=== PATIENT | male | born 1985 | race American Indian/Alaskan Native ===

== ENCOUNTER 2017-02-23 09:31 | Emergency (ER) | payer SELFPAY ==
[2017-02-23 10:05] VITALS: BP 131/89
--- NOTE | 2017-02-23 10:09 | Emergency Department Report ---
Chief Complaint: Skin/Abscess/Foreign Body Stated Complaint: KNOT ON LEFT SIDE OF NECK Time Seen by Provider: 02/23/17 10:05 - HPI History of Present Illness: pt states he woke up with a tender knot on his left neck - ROS Review of Systems: - toothache - sore throat - ear pain - Exam Vital Signs: Vital Signs 02/23/17 10:03 Temperature 98.5 F Pulse Rate 84 Respiratory 16 Rate Blood Pressure 131/89 O2 Sat by Pulse 98 Oximetry Physical Exam: + L tonsilar/ ant cervical adenopathy MSE screening note: Focused history and physical exam performed. Due to findings the following was ordered: labs ED Disposition for MSE Condition: Stable
[2017-02-23 10:26] LABS: Basophils % (Auto) 0.3 % (0.0-1.8); Eosinophils % (Auto) 1.4 % (0.0-4.3); Hematocrit 38.8 % (35.5-45.6); Hemoglobin 13.1 gm/dl (11.8-15.2); Mean Corpuscular HGB Conc 34 % (32-34); Mean Corpuscular Hemoglobin 30 pg (28-32); Mean Corpuscular Volume 90 fl (84-94); Platelet Count 165 K/mm3 (140-440); Red Blood Count 4.33 M/mm3 (3.65-5.03); Red Cell Distribution Width 14.4 % (13.2-15.2); White Blood Count 3.7 K/mm3 (4.5-11.0)
[2017-02-23 10:45] LABS: Anion Gap 18 mmol/L; Blood Urea Nitrogen 12 mg/dL (9-20); Calcium 8.7 mg/dL (8.4-10.2); Carbon Dioxide 24 mmol/L (22-30); Chloride 103.5 mmol/L (98-107); Glucose 97 mg/dL (75-100); Potassium 4.1 mmol/L (3.6-5.0); Sodium 141 mmol/L (137-145)
--- NOTE | 2017-02-23 12:39 | Emergency Department Report ---
HPI - General Chief Complaint: Skin/Abscess/Foreign Body Time Seen by Provider: 02/23/17 10:05 - HPI HPI: Patient reports that he feels a knot and has numbness to the left side of his face behind and below his ear. He said he noticed that this morning. He said the pain is. 10 and it feels sore worse with touching. No swaw-byk-ohpgbrk medication taken. He denies any cough, fever, sore throat, nausea vomiting in, abdominal pain. Denies any urinary burning frequency or urgency. He reports some nasal congestion. Patient with history of hypertension and gastritis. ED Past Medical Hx - Past Medical History Previous Medical History?: Yes Hx Hypertension: Yes Additional medical history: gastritis. gallbladder disease(needs surgery) no stones - Surgical History Past Surgical History?: No - Family History Family history: hypertension - Social History Smoking Status: Current Every Day Smoker Substance Use Type: None - Medications Home Medications: Home Medications Medication Instructions Recorded Confirmed Last Taken Type Acetaminophen [Acetaminophen TAB] 500 mg PO Q8H PRN #12 tablet 02/23/17 Unknown Rx Amoxicillin [Amoxicillin TAB] 875 mg PO BID #14 tablet 02/23/17 Unknown Rx Cetirizine HCl [ZyrTEC] 10 mg PO QDAY #14 capsule 02/23/17 Unknown Rx Fluticasone [Flonase] 1 spray NS QDAY #1 bottle 02/23/17 Unknown Rx ED Review of Systems ROS: Stated complaint: KNOT ON LEFT SIDE OF NECK Other details as noted in HPI Comment: All other systems reviewed and negative Constitutional: denies: chills, fever Eyes: denies: eye pain, eye discharge ENT: denies: ear pain, throat pain, dental pain, hearing loss, epistaxis, congestion Respiratory: no symptoms reported Cardiovascular: denies: chest pain, palpitations, dyspnea on exertion Gastrointestinal: denies: abdominal pain, nausea, vomiting, diarrhea, constipation Genitourinary: denies: urgency, dysuria, frequency, hematuria, discharge, testicular pain, testicular mass Musculoskeletal: denies: back pain, joint swelling, arthralgia, myalgia Skin: denies: rash, lesions Neurological: numbness (facial area that has resolved). denies: headache, weakness, paresthesias, confusion, abnormal gait Hematological/Lymphatic: swollen glands. denies: easy bleeding, easy bruising Physical Exam - Physical Exam Vital Signs: Vital Signs 02/23/17 10:03 Temperature 98.5 F Pulse Rate 84 Respiratory 16 Rate Blood Pressure 131/89 O2 Sat by Pulse 98 Oximetry General: This is a 31-year-old male well-nourished well-developed in no acute distress Physical Exam: Head: Normocephalic, atraumatic, no abrasion, no bruising and no contusion. Eyes: Biateral pupils equal and reactive to light, bilateral EOM intact.. Bilateral conjunctival and sclera without injection, normal accommodation. Nose: NTTP. Mucosa pale and boggy. No maxillary or frontal sinus tenderness. Ears: Bilateral EAC without any redness drainage or swelling, Bi lateral TM congested without ertythema. No auricular abnormality. Vivek. Tragus NTTP. Normal inspection Mouth: No pharyngeal exudate or erythema. Uvula is midline and oral airways patent. Moist and tongue is normal Neck: Supple, Poserior cervical adenopathy, full range of motion and no C-spine tenderness. No swelling or tracheal deviation Cardiovascular: S1, S2. Regular rate and rhythm. No murmur. Capillary refill is less then 3 seconds. Lungs: Clear to auscultate bilaterally. No rhonchi, wheezes or rales. No chest wall tenderness MSK: Strength 5/5 in all extremities. No joint deformity or crepitus. Normal inspection. Full range of motion to all extremities Extremities: No clubbing, cyanosis or edema. +2 pulses. No neurovascular compromise Neurological: GCS is 15, alert and oriented 3, normal gait, negative pronator drift, negative Romberg. No sensory or motor deficit. Speech is clear and fluid and no facial droop . Normal reflexes Back: Full range of motion, normal inspection, no paraspinal or vertebral tenderness. negative SLR bilaterally and no saddle anesthesia Skin: Clean, dry and intact. No rash or lesions. Psych: Normal mood and behavior. ED Course Vital Signs 02/23/17 10:03 Temperature 98.5 F Pulse Rate 84 Respiratory 16 Rate Blood Pressure 131/89 O2 Sat by Pulse 98 Oximetry - Reevaluation(s) Reevaluation #1: 02/23/17 12:58 had uneventful ED stay ED Medical Decision Making - Lab Data Result diagrams: 02/23/17 10:13 02/23/17 10:13 Lab Results 02/23/17 02/23/17 Range/Units 10:13 10:13 WBC 3.7 L (4.5-11.0) K/mm3 RBC 4.33 (3.65-5.03) M/mm3 Hgb 13.1 (11.8-15.2) gm/dl Hct 38.8 (35.5-45.6) % MCV 90 (84-94) fl MCH 30 (28-32) pg MCHC 34 (32-34) % RDW 14.4 (13.2-15.2) % Plt Count 165 (140-440) K/mm3 Lymph % (Auto) 47.4 H (13.4-35.0) % Kenton % (Auto) 6.9 (0.0-7.3) % Eos % (Auto) 1.4 (0.0-4.3) % Baso % (Auto) 0.3 (0.0-1.8) % Lymph # 1.7 (1.2-5.4) K/mm3 Kenton # 0.3 (0.0-0.8) K/mm3 Eos # 0.1 (0.0-0.4) K/mm3 Baso # 0.0 (0.0-0.1) K/mm3 Seg Neutrophils % 44.0 (40.0-70.0) % Seg Neutrophils # 1.6 L (1.8-7.7) K/mm3 Sodium 141 (137-145) mmol/L Potassium 4.1 (3.6-5.0) mmol/L Chloride 103.5 (98-107) mmol/L Carbon Dioxide 24 (22-30) mmol/L Anion Gap 18 mmol/L BUN 12 (9-20) mg/dL Creatinine 1.0 (0.8-1.5) mg/dL Estimated GFR > 60 ml/min BUN/Creatinine Ratio 12.00 % Glucose 97 (75-100) mg/dL Calcium 8.7 (8.4-10.2) mg/dL - Medical Decision Making ED course: Pthere complaining and off left neck swelling with physical findings for left so by cold adenitis posteriorly. His CBC reflects low white count of 3.7 elevated lymph and decrease neutrophils otherwise normal. BMP was stable. I explained to patient based on my physical findings he has allergic rhinitis and that it is not uncommon to have unilateral isolated lymph nodes swelling and inflammation. Patient reports that he has high blood pressure and I told them that this could be a viral infection. I also encouraged him to have HIV testing done at [facility] which is free on Tuesdays and because he said he has never had one. I encouraged him that he is not having symptoms of acute viral infection such as cough, sore throat, night sweats and weight loss. Patient will be treated with antibiotics and Tylenol because he said he cannot take Motrin. He voices understanding to discharge instruction and treatment plan. Diagnostic/labs: CBC with decreased white blood cell, increase lymph and decrease neutrophil which suggests viral infection. BMP is stable. Patient encouraged to have STD testing which he has not had. Assessment/plan 1: Rhinitis: Possible viral in nature 2. Leukopenia-mild low white count of 3.7 3. Isolated posterior cervical lympadenitis Prescription sent for Zyrtec and Flonase to cover rhinitis Prescription sent for amoxicillin and Tylenol for adenitis Patient encouraged to follow-up at [facility] Tuesdays and /or for STD test Follow-up with primary care physician as needed Critical care attestation.: If time is entered above; I have spent that time in minutes in the direct care of this critically ill patient, excluding procedure time. ED Disposition Clinical Impression: Cervical adenitis Leukocytopenia, unspecified Qualifiers: Leukopenia type: unspecified Qualified Code(s): D72.819 - Decreased white blood cell count, unspecified Rhinitis Qualifiers: Rhinitis type: other Chronicity: acute Qualified Code(s): J00 - Acute nasopharyngitis [common cold] Disposition: TO HOME OR SELFCARE Is pt being admited?: No Does the pt Need Aspirin: No Condition: Stable Instructions: Cold Symptoms (ED), Allergic Rhinitis (ED), Adenitis (ED) Additional Instructions: Take antibiotic as prescribed Increase fluid intake Follow up at health Department as discussed Prescriptions: Acetaminophen [Acetaminophen TAB] 500 mg PO Q8H PRN #12 tablet PRN Reason: Pain Amoxicillin [Amoxicillin TAB] 875 mg PO BID #14 tablet Cetirizine HCl [ZyrTEC] 10 mg PO QDAY #14 capsule Fluticasone [Flonase] 1 spray NS QDAY #1 bottle Referrals: PRIMARY CARE, [Primary Care Provider] - 3-5 Days Forms: Work/School Release Form(ED)
== END 2017-02-23 13:20 | disposition home or self-care (01) ==
LOC: ED 09:31
DX: I88.9 Nonspecific lymphadenitis, unspecified (principal); D72.819 Decreased white blood cell count, unspecified; J31.0 Chronic rhinitis; I10 Essential (primary) hypertension; F17.210 Nicotine dependence, cigarettes, uncomplicated
CPT/HCPCS: 36415; 80048; 85025; 99283

== ENCOUNTER 2018-03-17 19:52 | Emergency (ER) | payer SELFPAY | END 2018-03-17 20:15 | disposition left against medical advice (07) | LOC: ED 19:52 | DX: M79.602 Pain in left arm (principal); Z53.21 Procedure and treatment not carried out due to patient leaving prior to being seen by health care provider ==

== ENCOUNTER 2018-04-01 10:49 | Day surgery (SDC) | payer BC ==
[2018-04-01] MEDS ORDERED: ANCEF/STERILE WATER 2 GM/20 ML IV NR (12:42)
[2018-04-01] MEDS ORDERED: DIPRIVAN 10 MG/ML IV ONE (12:44)
--- NOTE | 2018-04-01 12:57 | Anesthesia Day of Surgery ---
Anesthesia Day of Surgery - Day of Surgery Patient H&P Reviewed: Yes Patient is NPO: Yes Beta Blockers: No Cardiac Clearance: No Pulmonary Clearance: No
--- NOTE | 2018-04-01 12:57 | Anesthesia Consultation ---
Anesthesia Consult and Med Hx Date of service: 04/01/18 - Airway Anesthetic Teeth Evaluation: Good ROM Head & Neck: Adequate Mental/Hyoid Distance: Adequate Mallampati Class: Class II Intubation Access Assessment: Probably Good - Pulmonary Exam CTA: Yes - Cardiac Exam Cardiac Exam: RRR - Pre-Operative Health Status ASA Pre-Surgery Classification: ASA2 Proposed Anesthetic Plan: General - Pulmonary Hx Smoking: Yes (1/4 PPD X 10 YRS) Hx Asthma: Yes ( CHILD ONLY) Hx Sleep Apnea: No (BERNICE PRE SCREEN LOW RISK) - Cardiovascular System Hx Hypertension: No - Other Systems Hx Alcohol Use: Yes (BEER QD) Hx Cancer: No
[2018-04-01] MEDS ORDERED: LACTATED RINGERS 1,000 ML IV SCH ×2 (13:00)
[2018-04-01] MEDS ORDERED: MARCAINE 0.5% INFILTRATI ONE ×3 (13:19→13:55)
[2018-04-01] MEDS ORDERED: XYLOCAINE MPF 2% ONE (13:21)
[2018-04-01] MEDS ORDERED: LOPRESSOR IV ONE (13:21)
[2018-04-01] MEDS ORDERED: DILAUDID ONE (13:21)
[2018-04-01] MEDS ORDERED: DECADRON ONE (14:04)
[2018-04-01] MEDS ORDERED: ZOFRAN ONE (14:04)
--- NOTE | 2018-04-01 14:16 | Procedure Note ---
Date of procedure: 04/01/18 Pre-op diagnosis: Unstable dislocation left carpometacarpal joint thumb Post-op diagnosis: same Procedure: Closed reduction percutaneous K wire fixation left carpometacarpal joint thumb Procedure The patient was brought to the OR on the recovery room bed he was then placed supine on the OR table Patient was induced with general anesthesia. The left upper extremity was then prepped and draped in the usual sterile manner. A timeout procedure was done to identify the patient and the correct operative site. Under C-arm visualization the left thumb was visualized the patient was noted to have a unstable dislocation with dislocation with slight pressure on the metacarpal necks 26.2 K wires were inserted along the proximal portion of the metacarpal and through to the trapezium AP and lateral views were obtained showing good reduction at the CMC joint and placement of the K wires following this the K wires were bent at a 90 angle and cut protruding above the skin Routine. Dressings were applied as well as a well-padded thumb spica splint. The patient tolerated the procedure. No complications he was sent to postanesthesia recovery in a stable condition Anesthesia: MAC Surgeon: EDUAR MUNOZ Estimated blood loss: minimal Pathology: none Condition: stable Disposition: PACU
[2018-04-01] MEDS: DILAUDID IV PRN ×3 (14:18→14:50)
[2018-04-01] MEDS ORDERED: NORCO 5/325 ONE (14:25)
[2018-04-01] MEDS ORDERED: DILAUDID IV PRN (15:35)
[2018-04-01] MEDS ORDERED: DEMEROL IV PRN (15:35)
[2018-04-01] MEDS ORDERED: DEMEROL ONE (15:42)
[2018-04-01] MEDS ORDERED: NORCO 5/325 PO PRN (16:37)
[2018-04-01 17:24] VITALS: BP 150/92
--- NOTE | 2018-04-01 23:49 | XRay Report ---
FINAL REPORT EXAM: XR FINGER(S) 2+V LT HISTORY: LT THUMB DISLOCATION/LT THUMB PINNING TECHNIQUE: Two, fluoroscopic images of the left thumb were obtained. PRIORS: None. FINDINGS: Levi wires are noted traversing the 1st carpometacarpal articulation. No displaced fracture identified. Evaluation limited secondary to oblique, low dose projection. IMPRESSION: Percutaneous pinning of the left 1st carpometacarpal articulation, no findings to suggest complication.
== END 2018-04-01 17:25 | disposition home or self-care (01) ==
LOC: OR 10:49
PROVIDERS: ATTEND Orthopaedic Surgery
DX: S63.045A Dislocation of carpometacarpal joint of left thumb, initial encounter (principal); J45.909 Unspecified asthma, uncomplicated; F17.210 Nicotine dependence, cigarettes, uncomplicated; Z79.899 Other long term (current) drug therapy; Z88.1 Allergy status to other antibiotic agents; Z88.2 Allergy status to sulfonamides; Z72.89 Other problems related to lifestyle; Z98.890 Other specified postprocedural states; X58.XXXA Exposure to other specified factors, initial encounter; Y93.89 Activity, other specified; Y92.89 Other specified places as the place of occurrence of the external cause; Y99.8 Other external cause status
CPT/HCPCS: 26650; 73140; J0690; J1100; J1170; J2175; J2405; J2704; J7120

== ENCOUNTER 2019-03-30 15:32 | Emergency (ER) | payer BC ==
[2019-03-30 15:45] VITALS: BP 175/108
--- NOTE | 2019-03-30 15:54 | Event Note ---
ED Screening Note Date of service: 03/30/19 Time: 15:44 ED Screening Note: 33 y o male presents with left upper abd pain with nauea x 2 days This initial assessment/diagnostic orders/clinical plan/treatment(s) is/are subject to change based on patients health status, clinical progression and re- assessment by fellow clinical providers in the ED. Further treatment and workup at subsequent clinical providers discretion. Patient/guardian urged not to elope from the ED as their condition may be serious if not clinically assessed and managed. Initial orders include: ua labs ACC eval
[2019-03-30 17:16] LABS: Basophils % (Auto) 0.6 % (0.0-1.8); Eosinophils % (Auto) 0.4 % (0.0-4.3); Hematocrit 41.7 % (35.5-45.6); Hemoglobin 13.9 gm/dl (11.8-15.2); Mean Corpuscular HGB Conc 33 % (32-34); Mean Corpuscular Volume 98 fl (84-94); Monocytes # (Auto) 0.2 K/mm3 (0.0-0.8); Monocytes % (Auto) 5.7 % (0.0-7.3); Platelet Count 172 K/mm3 (140-440); Red Blood Count 4.25 M/mm3 (3.65-5.03); Red Cell Distribution Width 14.2 % (13.2-15.2)
[2019-03-30 17:33] LABS: BUN/Creatinine Ratio 10; Blood Urea Nitrogen 10 mg/dL (9-20); Hemolysis Index 5
[2019-03-30] MEDS ORDERED: ONDANSETRON 4 MG/2 ML INJ IV ONE (17:37)
[2019-03-30] MEDS ORDERED: SODIUM CHLORIDE 0.9% 1000 ML 1,000 ML IV ONE (17:37)
[2019-03-30] MEDS ORDERED: MORPHINE 4 MG/1 ML INJ IV ONE (17:37)
[2019-03-30] MEDS ORDERED: POTASSIUM CHLORIDE ER 20 MEQ TAB PO ONE (18:02)
[2019-03-30] MEDS ORDERED: HYDROcodone/ACETAMINOPHEN 10-325MG TAB PO ONE (18:28)
[2019-03-30] MEDS ORDERED: DICYCLOMINE 10 MG/5 ML ORAL LIQD PO ONE (18:28)
--- NOTE | 2019-03-30 19:26 | Emergency Department Report ---
ED Abdominal Pain HPI - General Chief Complaint: Chest Pain Stated Complaint: LT SIDE CHEST PAIN/SOB Time Seen by Provider: 03/30/19 15:43 Source: patient Mode of arrival: Ambulatory Limitations: No Limitations - History of Present Illness Initial Comments: This is a 33-year-old male nontoxic, well nourished in appearance, no acute signs of distress presents to the ED with c/o of nausea and vomiting and left upper abdominal pain 1 day. Patient describes vomiting as food content and yellow gastric acid. Patient describes abdominal pain as cramping and aching with level of 3/10 with radiation to left sided chest area. Patient denies any upper respiratory symptoms. Patient denies any shortness of breath, hemoptysis, fever, chills, nausea, vomiting, headache, stiff neck, numbness, tingling, abdominal pain. Patient denies pleuritic chest pain. Patient denies any recent travels or long car rides. Patient denies any recent surgeries or any sick contacts. He stated allergies to Bactrim and NSAIDs. Denies significant past medical history. MD Complaint: abdominal pain, other (chest pain, n/v) -: This morning Location: LUQ Radiation: chest Migration to: no migration Severity: mild Severity scale (0 -10): 3 Quality: cramping, aching Consistency: constant Improves With: nothing Worsens With: nothing Associated Symptoms: nausea, vomiting. denies: diarrhea, fever, chills, constipation, dysuria, hematemesis, hematochezia, melena, anorexia, syncope - Related Data Home Medications Medication Instructions Recorded Confirmed Last Taken HYDROcodone/ACETAMINOPHEN 1 each PO PRN PRN 03/31/18 04/01/18 03/31/18 [Hydrocodone-Acetamin 5-325 mg] Previous Rx's Medication Instructions Recorded Last Taken Type HYDROcodone/APAP 5-325 [Warren 1 each PO Q4HR PRN #20 tablet 04/01/18 Unknown Rx 5-325 mg TAB] Acetaminophen/Codeine [Tylenol 1 tab PO Q6H PRN #12 tab 03/30/19 Unknown Rx /Codeine # 3 tab] Ondansetron [Zofran Odt] 4 mg PO Q8HR PRN #20 tab.rapdis 03/30/19 Unknown Rx Allergies Allergy/AdvReac Type Severity Reaction Status Date / Time NSAIDS (Non-Steroidal Allergy Nausea Verified 07/23/13 10:05 Anti-Inflamma sulfamethoxazole Allergy Hives Verified 07/23/13 10:05 [From Bactrim] trimethoprim [From Bactrim] Allergy Hives Verified 07/23/13 10:05 ED Review of Systems ROS: Stated complaint: LT SIDE CHEST PAIN/SOB Other details as noted in HPI Constitutional: denies: chills, fever Eyes: denies: eye pain, eye discharge, vision change ENT: denies: ear pain, throat pain Respiratory: denies: cough, shortness of breath, wheezing Cardiovascular: chest pain. denies: palpitations Endocrine: no symptoms reported Gastrointestinal: abdominal pain, nausea, vomiting. denies: diarrhea Genitourinary: denies: urgency, dysuria Musculoskeletal: denies: back pain, joint swelling, arthralgia Skin: denies: rash, lesions Neurological: denies: headache, weakness, paresthesias Psychiatric: denies: anxiety, depression Hematological/Lymphatic: denies: easy bleeding, easy bruising ED Past Medical Hx - Past Medical History Hx Hypertension: No Hx Asthma: Yes ( CHILD ONLY) Hx HIV: No Additional medical history: gastritis. gallbladder disease(needs surgery) no stones - Surgical History Past Surgical History?: Yes Additional Surgical History: LT THUMB - Social History Smoking Status: Current Every Day Smoker Substance Use Type: Alcohol - Medications Home Medications: Home Medications Medication Instructions Recorded Confirmed Last Taken Type HYDROcodone/ACETAMINOPHEN 1 each PO PRN PRN 03/31/18 04/01/18 03/31/18 History [Hydrocodone-Acetamin 5-325 mg] HYDROcodone/APAP 5-325 [Warren 1 each PO Q4HR PRN #20 tablet 04/01/18 Unknown Rx 5-325 mg TAB] Acetaminophen/Codeine [Tylenol 1 tab PO Q6H PRN #12 tab 03/30/19 Unknown Rx /Codeine # 3 tab] Ondansetron [Zofran Odt] 4 mg PO Q8HR PRN #20 tab.rapdis 03/30/19 Unknown Rx ED Physical Exam - General Limitations: No Limitations General appearance: alert, in no apparent distress - Head Head exam: Present: atraumatic, normocephalic - Neck Neck exam: Present: normal inspection, full ROM. Absent: tenderness, meningismus, lymphadenopathy - Respiratory Respiratory exam: Present: normal lung sounds bilaterally. Absent: respiratory distress, wheezes, rales, rhonchi, stridor, chest wall tenderness, accessory muscle use, decreased breath sounds, prolonged expiratory - Cardiovascular Cardiovascular Exam: Present: regular rate, normal rhythm, normal heart sounds. Absent: irregular rhythm, systolic murmur, diastolic murmur, rubs, gallop - GI/Abdominal GI/Abdominal exam: Present: soft, tenderness (LUQ), normal bowel sounds. Absent: distended, guarding, rebound, rigid, diminished bowel sounds - Extremities Exam Extremities exam: Present: normal inspection, full ROM, normal capillary refill. Absent: tenderness - Back Exam Back exam: Present: normal inspection, full ROM. Absent: tenderness, CVA tenderness (R), CVA tenderness (L), muscle spasm, paraspinal tenderness, vertebral tenderness, rash noted - Neurological Exam Neurological exam: Present: alert, oriented X3, normal gait - Psychiatric Psychiatric exam: Present: normal affect, normal mood - Skin Skin exam: Present: warm, dry, intact, normal color. Absent: rash ED Course Vital Signs 03/30/19 03/30/19 03/30/19 15:43 18:37 18:40 Temperature 98.0 F Pulse Rate 99 H Respiratory 16 16 17 Rate Blood Pressure 175/108 O2 Sat by Pulse 99 Oximetry 03/30/19 03/30/19 19:10 19:17 Temperature Pulse Rate Respiratory 18 18 Rate Blood Pressure O2 Sat by Pulse Oximetry - Reevaluation(s) Reevaluation #1: 03/30/19 19:31 Patient is speaking in full sentences with no signs of distress noted. ED Medical Decision Making - Lab Data Result diagrams: 03/30/19 16:38 03/30/19 16:38 - Medical Decision Making This is a 33-year-old male that presents with chest pain and abdominal pain with n/v. Patient is stable and was examined by me. IVONE and HEART score 0 pints. Wells criteria for DVT/SVT/PE 0 points. Negative signs of symptoms of appendicitis. EKG normal sinus rhythm with no significant changes in ST. Chest xray dictated by the radiologist. CT IV and PO contrast of abdomen obtained and dictated by the radiologist. PAtient is notified of the Xray/CT report with no questions noted. Labs within normal limits. Negative troponin. Patient received Warren in the ED which she stated his symptoms are improving subsided. A by mouth challenge has been obtained and patient tolerated well with no nausea vomiting. Patient was instructed to Follow-up with a primary care/palliative nurse doctor in 3-5 days or if symptoms worsen and continue return to emergency room as soon as possible. At time of discharge, the patient does not seem toxic or i ll in appearance. No acute signs of distress noted. Patient agrees to discharge treatment plan of care. No further questions noted by the patient. Critical care attestation.: If time is entered above; I have spent that time in minutes in the direct care of this critically ill patient, excluding procedure time. ED Disposition Clinical Impression: Atypical chest pain Abdominal pain Qualifiers: Abdominal location: left upper quadrant Qualified Code(s): R10.12 - Left upper quadrant pain Nausea & vomiting Qualifiers: Vomiting type: unspecified Vomiting Intractability: non-intractable Qualified Code(s): R11.2 - Nausea with vomiting, unspecified Disposition: - TO HOME OR SELFCARE Is pt being admited?: No Does the pt Need Aspirin: No Condition: Stable Instructions: Chest Pain (ED), Acute Abdominal Pain (ED), Acute Nausea and Vomiting (ED), Acetaminophen/Codeine (By mouth) Additional Instructions: Follow-up with a primary care and palliative nurse doctor in 3-5 days or if symptoms worsen and continue return to emergency room as soon as possible. Do not operate any machinery while taking Tylenol with codeine as this may cause drowsiness. Prescriptions: Acetaminophen/Codeine [Tylenol /Codeine # 3 tab] 1 tab PO Q6H PRN #12 tab PRN Reason: Pain , Severe (7-10) Ondansetron [Zofran Odt] 4 mg PO Q8HR PRN #20 tab.rapdis PRN Reason: Nausea Referrals: PRIMARY CARE, [Primary Care Provider] - 3-5 Days NATHANAEL MENDOZA MD [Staff Physician] - 3-5 Days [facility] [Outside] - 3-5 Days [facility] [Outside] - 3-5 Days BRANDT BOWEN MD [Staff Physician] - 3-5 Days Forms: Work/School Release Form(ED)
--- NOTE | 2019-03-30 19:29 | XRay Report ---
Abdominal series with frontal chest 5 views INDICATION: Abdominal pain. Chest pain IMPRESSION: The lungs are clear. Heart size normal. Several dilated loops of small bowel noted within the left upper quadrant although no focal transition is identified. This could be seen with developi ng enteritis or low-grade small bowel obstruction. Moderate seen throughout much the colon. Signer Name: Charbel Guzman MD Signed: 03/30/2019 7:24 PM Workstation Name: [id number]
[2019-03-30 19:52] LABS: Bacteria,Urine 1+ /HPF (Negative); Bilirubin,Urine NEG (Negative); Blood,Urine NEG (Negative); Color,Urine Yellow (Yellow); Hyaline Casts,Urine 2 /LPF; Mucus,Urine 3+ /HPF; Urobilinogen,Urine < 2.0 mg/dL (<2.0)
--- NOTE | 2019-03-30 21:33 | Cat Scan Report ---
CT ABDOMEN AND PELVIS WITH CONTRAST INDICATION: abd pain/n/v. TECHNIQUE: Axial CT images were obtained through the abdomen and pelvis after 100 cc Omnipaque [address] scans at this location are performed using CT dose reduction for ALARA by means of automated exposure control. COMPARISON: None available. FINDINGS: LOWER CHEST: No significant abnormality. LIVER: No significant abnormality. GALLBLADDER: No significant abnormality. BILE DUCTS: No significant abnormality. PANCREAS: No significant abnormality. SPLEEN: No significant abnormality. ADRENALS: No significant abnormality. RIGHT KIDNEY and URETER: No significant abnormality. LEFT KIDNEY and URETER: No significant abnormality. STOMACH and SMALL BOWEL: No significant abnormality. COLON: No significant abnormality. APPENDIX: Normal PERITONEUM: No free fluid. No free air. No fluid collection. LYMPH NODES: No significant adenopathy. AORTA and ARTERIES: No significant abnormality. IVC and VEINS: No significant abnormality. URINARY BLADDER: No significant abnormality. REPRODUCTIVE ORGANS: No significant abnormality. ADDITIONAL FINDINGS: None. SKELETAL SYSTEM: No significant abnormality. IMPRESSION: 1. No significant abnormality. Signer Name: Shimon Trivedi MD Signed: 03/30/2019 9:28 PM Workstation Name: [id number]
== END 2019-03-30 22:08 | disposition home or self-care (01) ==
LOC: ED 15:32
DX: R07.89 Other chest pain (principal); R10.12 Left upper quadrant pain; R11.2 Nausea with vomiting, unspecified; J45.909 Unspecified asthma, uncomplicated; F17.200 Nicotine dependence, unspecified, uncomplicated; Z87.19 Personal history of other diseases of the digestive system; Z98.890 Other specified postprocedural states; Z79.899 Other long term (current) drug therapy; Z88.6 Allergy status to analgesic agent
CPT/HCPCS: 36415; 74022; 74177; 80048; 81001; 82150; 83690; 84484; 85025; 93005; 93010; 96361; 96374; 96375; 99284; J2270; J2405; J7030; Q9967

== ENCOUNTER 2019-04-24 07:38 | Emergency (ER) | payer BC ==
[2019-04-24] MEDS ORDERED: NACL 0.9% 1000 ML 1,000 ML IV ONE (08:20)
--- NOTE | 2019-04-24 08:30 | Emergency Department Report ---
ED General Adult HPI - General Chief complaint: GI Bleed Stated complaint: N/V/DISORIENTED/ABD PAIN Time Seen by Provider: 04/24/19 08:09 Source: patient Mode of arrival: Ambulatory Limitations: No Limitations - History of Present Illness Initial comments: 33-year-old -[place] male presents to the emergency room for complaint of nausea vomiting last night and abdominal discomfort with blood in stool last night. Patient admits to continuing nausea. Patient reports blood in stool was mixed with stool and on toilet paper. Patient also complains of a boil on his buttock has been here for a while. Patient reports that it is painful. Patient does elicit that he was drinking a couple of beers last night and that he drinks every day. Patient denies any past medical history currently takes no medications on a daily basis surgical history left thumb surgery with Dr. Goncalves in 2018. Patient does have a primary care provider is Dr. Rubio. -: Last night Location: abdomen, genitals Radiation: non-radiation Quality: aching, constant Improves with: none Worsens with: none Associated Symptoms: nausea/vomiting Treatments Prior to Arrival: none - Related Data Home Medications Medication Instructions Recorded Confirmed Last Taken HYDROcodone/ACETAMINOPHEN 1 each PO PRN PRN 03/31/18 04/01/18 03/31/18 [Hydrocodone-Acetamin 5-325 mg] Previous Rx's Medication Instructions Recorded Last Taken Type HYDROcodone/APAP 5-325 [[place] 1 each PO Q4HR PRN #20 tablet 04/01/18 Unknown Rx 5-325 mg TAB] Acetaminophen/Codeine [Tylenol 1 tab PO Q6H PRN #12 tab 04/24/19 Unknown Rx /Codeine # 3 tab] DOXYCYCLINE Hyclate [Vibramycin 100 mg PO Q12HR #20 capsule 04/24/19 Unknown Rx CAP] Famotidine [Pepcid] 20 mg PO BID #20 tablet 04/24/19 Unknown Rx Ondansetron [Zofran ODT TAB] 4 mg PO Q8HR PRN #20 tab.rapdis 04/24/19 Unknown Rx Allergies Allergy/AdvReac Type Severity Reaction Status Date / Time NSAIDS (Non-Steroidal Allergy Nausea Verified 07/23/13 10:05 Anti-Inflamma sulfamethoxazole Allergy Hives Verified 07/23/13 10:05 [From Bactrim] trimethoprim [From Bactrim] Allergy Hives Verified 07/23/13 10:05 ED Review of Systems ROS: Stated complaint: N/V/DISORIENTED/ABD PAIN Other details as noted in HPI Comment: All other systems reviewed and negative ED Past Medical Hx - Past Medical History Hx Hypertension: No Hx Asthma: Yes ( CHILD ONLY) Hx HIV: No Additional medical history: gastritis. gallbladder disease(needs surgery) no stones - Surgical History Additional Surgical History: LT THUMB - Social History Smoking Status: Current Every Day Smoker Substance Use Type: Alcohol - Medications Home Medications: Home Medications Medication Instructions Recorded Confirmed Last Taken Type HYDROcodone/ACETAMINOPHEN 1 each PO PRN PRN 03/31/18 04/01/18 03/31/18 History [Hydrocodone-Acetamin 5-325 mg] HYDROcodone/APAP 5-325 [[place] 1 each PO Q4HR PRN #20 tablet 04/01/18 Unknown Rx 5-325 mg TAB] Acetaminophen/Codeine [Tylenol 1 tab PO Q6H PRN #12 tab 04/24/19 Unknown Rx /Codeine # 3 tab] DOXYCYCLINE Hyclate [Vibramycin 100 mg PO Q12HR #20 capsule 04/24/19 Unknown Rx CAP] Famotidine [Pepcid] 20 mg PO BID #20 tablet 04/24/19 Unknown Rx Ondansetron [Zofran ODT TAB] 4 mg PO Q8HR PRN #20 tab.rapdis 04/24/19 Unknown Rx ED Physical Exam - General Limitations: No Limitations General appearance: alert, in no apparent distress, other (smells of alcohol) - Head Head exam: Present: atraumatic, normocephalic - Eye Eye exam: Present: normal appearance - ENT ENT exam: Present: mucous membranes moist - Neck Neck exam: Present: normal inspection, full ROM - Respiratory Respiratory exam: Present: normal lung sounds bilaterally. Absent: respiratory distress - Cardiovascular Cardiovascular Exam: Present: regular rate, normal rhythm. Absent: systolic murmur, diastolic murmur, rubs, gallop - GI/Abdominal GI/Abdominal exam: Present: soft, normal bowel sounds. Absent: distended, tenderness, guarding, rebound - Rectal Rectal exam: Present: normal rectal tone, heme (+) stool, tenderness (to the perineum without induration minimal fluctuation) - Back Exam Back exam: Present: normal inspection, full ROM - Neurological Exam Neurological exam: Present: alert, oriented X3 - Psychiatric Psychiatric exam: Present: normal affect, normal mood - Skin Skin exam: Present: warm, dry, intact, normal color. Absent: rash ED Course Vital Signs 04/24/19 07:40 Temperature 98 F Pulse Rate 96 H Respiratory 18 Rate Blood Pressure 166/112 O2 Sat by Pulse 94 Oximetry ED Medical Decision Making - Lab Data Result diagrams: 04/24/19 08:20 04/24/19 08:20 - Medical Decision Making 33-year-old -[place] male presents to the emergency room for complaint of nausea vomiting last night and abdominal discomfort with blood in stool last night. Patient admits to continuing nausea. Patient reports blood in stool was mixed with stool and on toilet paper. Patient also complains of a boil on his buttock has been here for a while. Patient reports that it is painful. Patient does elicit that he was drinking a couple of beers last night and that he drinks every day. Patient denies any past medical history currently takes no medications on a daily basis surgical history left thumb surgery with Dr. Goncalves in 2018. Patient does have a primary care provider is Dr. Rubio. Patient's orders were placed for CBC CMP lipase blood alcohol level ER occult guaiac, normal saline IV insertion. Critical care attestation.: If time is entered above; I have spent that time in minutes in the direct care of this critically ill patient, excluding procedure time. ED Disposition Clinical Impression: Abscess or cellulitis of perineum, Acute abdominal pain Disposition: -01 TO HOME OR SELFCARE Is pt being admited?: No Does the pt Need Aspirin: No Condition: Stable Instructions: Furunculosis and Carbunculosis (ED), Acute Abdominal Pain (ED), High Fiber Diet (ED), At-Risk Alcohol Use (ED) Additional Instructions: All labs are negative for any acute findings. Please completes your antibiotics as scribe. Take pain medication as needed. Refrain from drinking alcohol. Increase her diet with high fiber foods and vegetables and fruit. Please follow up with a lactic gastroenterology have listed their information below for your convenience. Prescriptions: Famotidine [Pepcid] 20 mg PO BID #20 tablet Acetaminophen/Codeine [Tylenol /Codeine # 3 tab] 1 tab PO Q6H PRN #12 tab PRN Reason: Pain , Severe (7-10) DOXYCYCLINE Hyclate [Vibramycin CAP] 100 mg PO Q12HR #20 capsule Ondansetron [Zofran ODT TAB] 4 mg PO Q8HR PRN #20 tab.rapdis PRN Reason: Nausea Referrals: PRIMARY CARE, [Primary Care Provider] - 3-5 Days [facility] [Provider Group] - 3-5 Days JUAN RUCKER MD [Staff Physician] - 3-5 Days Forms: Accompanied Note, Work/School Release Form(ED)
[2019-04-24] MEDS ORDERED: ZOFRAN IV ONE (08:36)
[2019-04-24 08:37] LABS: Basophils % (Auto) 0.6 % (0.0-1.8); Eosinophils % (Auto) 0.6 % (0.0-4.3); Hematocrit 39.9 % (35.5-45.6); Hemoglobin 13.6 gm/dl (11.8-15.2); Lymphocytes # (Auto) 0.7 K/mm3 (1.2-5.4); Lymphocytes % (Auto) 22.6 % (13.4-35.0); Mean Corpuscular HGB Conc 34 % (32-34); Mean Corpuscular Volume 99 fl (84-94); Monocytes # (Auto) 0.3 K/mm3 (0.0-0.8); Platelet Count 139 K/mm3 (140-440); Red Blood Count 4.06 M/mm3 (3.65-5.03)
[2019-04-24 08:58] LABS: Alanine Aminotransferase 33 units/L (7-56); Albumin 4.5 g/dL (3.9-5); BUN/Creatinine Ratio 9; Blood Urea Nitrogen 10 mg/dL (9-20); Calcium 8.8 mg/dL (8.4-10.2); Hemolysis Index 2
--- NOTE | 2019-04-24 09:00 | Event Note ---
Date of service: 04/24/19 Face to Face: This is a 33-year-old gentleman who is not known to this provider previously. The patient is seen at this hospital last month for abdominal pain. Pertinent findings are attached to this document. He presents with a complaint of abdominal pain, reported regular emesis with possible blood, and he also reported a brown stool with red blood. He is a tobacco smoker, and consumes alcohol on a fairly regular basis as per my report. He also experiences secondary exposure to marijuana. His abdomen is soft and benign, with no rebound, guarding or peritoneal signs. Reportedly, rectal exam shows brown stool that is guaiac positive. The patient is strongly encouraged to follow up with outpatient gastroenterology. He was also counseled to modify diet and lifestyle, and to avoid exposure to tobacco, marijuana, and alcohol. He endorse a secondary complaint of Perineum induration, he reports his been present for 2 months, it is not especially tender, and there is no fluctuance. Patient may start sitz baths, as needed, doubt acute infectious process, however, we will cover with Keflex. The patient does not appear to have an emergent condition at this time, and he is strongly encouraged to follow up as an outpatient. The patient is clinically sober at this time. During his perineum examination, I am dealer compliance representative and escorted by JACKIE Garnerfied Print Report Referring Physician: SHARMILA GAYLE Patient Name: SARABJIT FLORES Date of : 1985 Sex: Male Report Date: 2019-03-30 Report Status: [place] [address] Cat Scan Report Signed Patient: SARABJIT FLORES MR#: [id number] : 1985 Acct:[id number] Age/Sex: 33 / M ADM Date: 03/30/19 Loc: ED Attending Dr: Ordering Physician: SHARMILA GAYLE NP Date of Service: 03/30/19 Procedure(s): CT abdomen pelvis w con Accession Number(s): [id number] cc: SHARMILA GAYLE NP CT ABDOMEN AND PELVIS WITH CONTRAST INDICATION: abd pain/n/v. TECHNIQUE: Axial CT images were obtained through the abdomen and pelvis after 100 cc Omnipaque [address] scans at this location are performed using CT dose reduction for ALARA by means of automated exposure control. COMPARISON: None available. FINDINGS: LOWER CHEST: No significant abnormality. LIVER: No significant abnormality. GALLBLADDER: No significant abnormality. BILE DUCTS: No significant abnormality. PANCREAS: No significant abnormality. SPLEEN: No significant abnormality. ADRENALS: No significant abnormality. RIGHT KIDNEY and URETER: No significant abnormality. LEFT KIDNEY and URETER: No significant abnormality. STOMACH and SMALL BOWEL: No significant abnormality. COLON: No significant abnormality. APPENDIX: Normal PERITONEUM: No free fluid. No free air. No fluid collection. LYMPH NODES: No significant adenopathy. AORTA and ARTERIES: No significant abnormality. IVC and VEINS: No significant abnormality. URINARY BLADDER: No significant abnormality. REPRODUCTIVE ORGANS: No significant abnormality. ADDITIONAL FINDINGS: None. SKELETAL SYSTEM: No significant abnormality. IMPRESSION: 1. No significant abnormality. Signer Name: Shimon Trivedi MD Signed: 03/30/2019 9:28 PM Workstation Name: [id number] Transcribed By: Dictated By: Shimon Trivedi MD Electronically Authenticated By: Shimon Trivedi MD Signed Date/Time: 03/30/192127 DD/ 25 Vital Signs 04/24/19 07:40 Temperature 98 F Pulse Rate 96 H Respiratory 18 Rate Blood Pressure 166/112 O2 Sat by Pulse 94 Oximetry Lab Results 04/24/19 04/24/19 04/24/19 Range/Units 08:20 08:20 08:26 WBC 3.1 L (4.5-11.0) K/mm3 RBC 4.06 (3.65-5.03) M/mm3 Hgb 13.6 (11.8-15.2) gm/dl Hct 39.9 (35.5-45.6) % MCV 99 H (84-94) fl MCH 34 H (28-32) pg MCHC 34 (32-34) % RDW 15.0 (13.2-15.2) % Plt Count 139 L (140-440) K/mm3 Lymph % (Auto) 22.6 (13.4-35.0) % [place] % (Auto) 9.0 H (0.0-7.3) % Eos % (Auto) 0.6 (0.0-4.3) % Baso % (Auto) 0.6 (0.0-1.8) % Lymph # 0.7 L (1.2-5.4) K/mm3 [place] # 0.3 (0.0-0.8) K/mm3 Eos # 0.0 (0.0-0.4) K/mm3 Baso # 0.0 (0.0-0.1) K/mm3 Seg Neutrophils % 67.2 (40.0-70.0) % Seg Neutrophils # 2.1 (1.8-7.7) K/mm3 Sodium 143 (137-145) mmol/L Potassium 3.7 (3.6-5.0) mmol/L Chloride 102.8 (98-107) mmol/L Carbon Dioxide 22 (22-30) mmol/L Anion Gap 22 mmol/L BUN 10 (9-20) mg/dL Creatinine 1.1 (0.8-1.5) mg/dL Estimated GFR > 60 ml/min BUN/Creatinine Ratio 9 % Glucose 100 (75-100) mg/dL Calcium 8.8 (8.4-10.2) mg/dL Total Bilirubin 0.40 (0.1-1.2) mg/dL AST 46 H (5-40) units/L ALT 33 (7-56) units/L Alkaline Phosphatase 68 (35-129) units/L Total Protein 8.3 H (6.3-8.2) g/dL Albumin 4.5 (3.9-5) g/dL Albumin/Globulin Ratio 1.2 % Lipase 22 (13-60) units/L Plasma/Serum Alcohol (0-0.07) % //19 Range/Units 08:26 WBC (4.5-11.0) K/mm3 RBC (3.65-5.03) M/mm3 Hgb (11.8-15.2) gm/dl Hct (35.5-45.6) % MCV (84-94) fl MCH (28-32) pg MCHC (32-34) % RDW (13.2-15.2) % Plt Count (140-440) K/mm3 Lymph % (Auto) (13.4-35.0) % [place] % (Auto) (0.0-7.3) % Eos % (Auto) (0.0-4.3) % Baso % (Auto) (0.0-1.8) % Lymph # (1.2-5.4) K/mm3 [place] # (0.0-0.8) K/mm3 Eos # (0.0-0.4) K/mm3 Baso # (0.0-0.1) K/mm3 Seg Neutrophils % (40.0-70.0) % Seg Neutrophils # (1.8-7.7) K/mm3 Sodium (137-145) mmol/L Potassium (3.6-5.0) mmol/L Chloride (98-107) mmol/L Carbon Dioxide (22-30) mmol/L Anion Gap mmol/L BUN (9-20) mg/dL Creatinine (0.8-1.5) mg/dL Estimated GFR ml/min BUN/Creatinine Ratio % Glucose (75-100) mg/dL Calcium (8.4-10.2) mg/dL Total Bilirubin (0.1-1.2) mg/dL AST (5-40) units/L ALT (7-56) units/L Alkaline Phosphatase (35-129) units/L Total Protein (6.3-8.2) g/dL Albumin (3.9-5) g/dL Albumin/Globulin Ratio % Lipase (13-60) units/L Plasma/Serum Alcohol 0.01 (0-0.07) %
[2019-04-24 10:30] VITALS: BP 158/89
== END 2019-04-24 10:36 | disposition home or self-care (01) ==
LOC: ED 07:38
DX: L03.315 Cellulitis of perineum (principal); J45.909 Unspecified asthma, uncomplicated; F17.200 Nicotine dependence, unspecified, uncomplicated; Z79.899 Other long term (current) drug therapy; Z98.890 Other specified postprocedural states; Z88.8 Allergy status to other drugs, medicaments and biological substances; Z88.2 Allergy status to sulfonamides
CPT/HCPCS: 36415; 80053; 82271; 83690; 85025; 96361; 96374; 99283; J2405; J7030; 80320; G0480

== ENCOUNTER 2019-07-17 20:42 | Observation (INO) | payer BC ==
--- NOTE | 2019-07-17 21:21 | Event Note ---
ED Screening Note ED Screening Note: tingling left arm and left leg that began this morning when he woke up states it feels like he has GERD, having heart burn states he feels SOB no n/v/d no fever no leg swelling PMHx GERD allergy: bactrim, NSAIDs states that he drinks every other day has not drank in three days on exam pt has tremors bilaterally no neuro deficits on exam, sensation intact This initial assessment/diagnostic orders/clinical plan/treatment(s) is/are subject to change based on patients health status, clinical progression and re- assessment by fellow clinical providers in the ED. Further treatment and workup at subsequent clinical providers discretion. Patient/guardian urged not to elope from the ED as their condition may be serious if not clinically assessed and managed. Initial orders include: labs, UA, UDS, CT head
--- NOTE | 2019-07-17 22:09 | Cat Scan Report ---
CT head/brain wo con INDICATION / CLINICAL INFORMATION: tingling left arm and left leg. TECHNIQUE: Axial CT imaging of the brain was obtained without contrast. Coronal and sagittal reformatted imaging obtained and reviewed. All CT scans at this location are performed using CT dose reduction for KATIA Araujo by means of automated exposure control. COMPARISON: None available. FINDINGS: No intracranial hemorrhage, mass, or midline shift is noted. No extra-axial fluid collection or sugge stion of acute territorial infarction. Ventricular system and basilar cisterns are unremarkable. Visualized paranasal sinuses and mastoid air cells are well aerated and clear. No calvarial abnormali ty. IMPRESSION: 1. Negative noncontrasted head CT scan. Signer Name: Rosalind Castillo MD Signed: 07/17/2019 10:05 PM Workstation Name: [id number]
[2019-07-17 22:19] LABS: Basophils % (Auto) 0.3 % (0.0-1.8); Eosinophils % (Auto) 0.6 % (0.0-4.3); Hemoglobin 14.1 gm/dl (11.8-15.2); Lymphocytes # (Auto) 0.8 K/mm3 (1.2-5.4); Lymphocytes % (Auto) 15.5 % (13.4-35.0); Mean Corpuscular HGB Conc 34 % (32-34); Mean Corpuscular Volume 99 fl (84-94); Monocytes # (Auto) 0.3 K/mm3 (0.0-0.8); Monocytes % (Auto) 5.9 % (0.0-7.3); Platelet Count 156 K/mm3 (140-440); Red Blood Count 4.16 M/mm3 (3.65-5.03); Red Cell Distribution Width 13.2 % (13.2-15.2)
[2019-07-17 22:42] LABS: Alanine Aminotransferase 25 units/L (7-56); Albumin 4.5 g/dL (3.9-5); BUN/Creatinine Ratio 10; Blood Urea Nitrogen 10 mg/dL (9-20); Calcium 9.3 mg/dL (8.4-10.2); Hemolysis Index 5
[2019-07-17 22:53] LABS: Amphetamine Screen,Urine PRESUMPTIVE NEGATIVE; Benzodiazepines Screen,Urine PRESUMPTIVE NEGATIVE; Cannabinoid Screen,Urine PRESUMPTIVE NEGATIVE; Cocaine Screen,Urine PRESUMPTIVE NEGATIVE; Methadone Screen,Urine PRESUMPTIVE NEGATIVE; Opiate Screen,Urine PRESUMPTIVE NEGATIVE
[2019-07-17 23:02] LABS: Bilirubin,Urine NEG (Negative); Blood,Urine NEG (Negative); Color,Urine Yellow (Yellow); Mucus,Urine FEW /HPF; Protein,Urine <15 mg/dL mg/dL (Negative); Urobilinogen,Urine < 2.0 mg/dL (<2.0)
[2019-07-17] MEDS ORDERED: LORazepam 2 MG/ML VIAL IV ONE (23:48)
[2019-07-17] MEDS ORDERED: MAGNESIUM SULFATE 2 GM/50 ML BAG IV ONE (23:49)
[2019-07-17] MEDS ORDERED: THIAMINE 100 MG, FOLIC ACID 1 MG, MULTIPLE VITAMIN INJ, ADULT 10 ML in SODIUM CHLORIDE ... IV ONE (23:49)
[2019-07-17] MEDS ORDERED: CLOPIDOGREL 300 MG TAB PO ONE (23:50)
--- NOTE | 2019-07-17 23:55 | Emergency Department Report ---
HPI - General Chief Complaint: Neuro Symptoms/Deficit Time Seen by Provider: 07/17/19 21:20 - HPI HPI: Room 38 The patient is a 33-year-old male presenting with a chief complaint left-sided numbness and confusion. The patient states he went to sleep this afternoon at approximately 17:00 after taking Prilosec for "heartburn." The patient states when he awakened this evening at 19:30 he had numbness in his left upper extremity and left lower extremity. Patient states he felt though he could not think clearly and is going pass out. Patient states she had difficulty getting his words out and felt short of breath. Patient denies headache but admits to nausea without vomiting. The patient admits to drinking alcohol every other day stating he normally drinks 2-3 12 ounce beers and occasionally consumes liquor. Patient states he last consumed alcohol 07/15/2019 Location: [See above] Duration: [See above] Quality: [See above] Severity: [See above] Timing: [See above] Context: [See above] Modifying factors: [See above] Associated signs and symptoms: [see above] ED Past Medical Hx - Past Medical History Previous Medical History?: Yes Hx Hypertension: No Hx Asthma: Yes ( CHILD ONLY) Hx HIV: No Additional medical history: gastritis. gallbladder disease(needs surgery) no stones - Surgical History Past Surgical History?: Yes Additional Surgical History: LT THUMB - Social History Smoking Status: Current Every Day Smoker Substance Use Type: Alcohol - Medications Home Medications: Home Medications Medication Instructions Recorded Confirmed Last Taken Type HYDROcodone/ACETAMINOPHEN 1 each PO PRN PRN 03/31/18 04/01/18 03/31/18 History [Hydrocodone-Acetamin 5-325 mg] HYDROcodone/APAP 5-325 [[place] 1 each PO Q4HR PRN #20 tablet 04/01/18 Unknown Rx 5-325 mg TAB] Famotidine [Pepcid] 20 mg PO BID #20 tablet 04/24/19 Unknown Rx Famotidine [Pepcid] 20 mg PO BID #60 tablet 04/24/19 Unknown Rx Ondansetron [Zofran ODT TAB] 4 mg PO Q8HR PRN #20 tab.rapdis 04/24/19 Unknown Rx cephALEXin [Keflex] 500 mg PO Q6HR #28 capsule 04/24/19 Unknown Rx ED Review of Systems ROS: Stated complaint: LEFT SIDE NUMBNESS/SOB Other details as noted in HPI Physical Exam - Physical Exam Vital Signs: Vital Signs 07/17/19 07/17/19 20:57 21:22 Temperature 98.6 F 98.6 F Pulse Rate 93 H Respiratory 18 18 Rate Blood Pressure 161/120 161/120 O2 Sat by Pulse 98 Oximetry ED Course Vital Signs 07/17/19 07/17/19 20:57 21:22 Temperature 98.6 F 98.6 F Pulse Rate 93 H Respiratory 18 18 Rate Blood Pressure 161/120 161/120 O2 Sat by Pulse 98 Oximetry - Consultations Consultation #1: 07/17/19 23:54 Dr. Norman paged 07/18/19 02:33 Still no return call from Dr. Norman yet. Hospitalist paged ED Medical Decision Making - Lab Data Result diagrams: 07/17/19 21:48 07/17/19 21:48 Laboratory Tests 07/17/19 07/17/19 07/17/19 21:14 21:48 21:48 WBC 4.9 RBC 4.16 Hgb 14.1 Hct 41.0 MCV 99 H MCH 34 H MCHC 34 RDW 13.2 Plt Count 156 Lymph % (Auto) 15.5 [place] % (Auto) 5.9 Eos % (Auto) 0.6 Baso % (Auto) 0.3 Lymph # 0.8 L [place] # 0.3 Eos # 0.0 Baso # 0.0 Seg Neutrophils % 77.7 H Seg Neutrophils # 3.8 Sodium 139 Potassium 3.9 Chloride 100.1 Carbon Dioxide 22 Anion Gap 21 BUN 10 Creatinine 1.0 Estimated GFR > 60 BUN/Creatinine Ratio 10 Glucose 103 H POC Glucose 89 Calcium 9.3 Total Bilirubin 0.50 AST 41 H ALT 25 Alkaline Phosphatase 76 Total Creatine Kinase 216 H Troponin T < 0.010 Total Protein 8.4 H Albumin 4.5 Albumin/Globulin Ratio 1.2 Lipase 17 Urine Color Urine Turbidity Urine pH Ur Specific [place] Urine Protein Urine Glucose (UA) Urine Ketones Urine Blood Urine Nitrite Urine Bilirubin Urine Urobilinogen Ur Leukocyte Esterase Urine WBC (Auto) Urine RBC (Auto) U Epithel Cells (Auto) Urine Mucus Salicylates Urine Opiates Screen Urine Methadone Screen Acetaminophen Ur Barbiturates Screen Ur Phencyclidine Scrn Ur Amphetamines Screen U Benzodiazepines Scrn Urine Cocaine Screen U Marijuana (THC) Screen Drugs of Abuse Note Plasma/Serum Alcohol 07/17/19 07/17/19 07/17/19 21:48 21:48 21:48 WBC RBC Hgb Hct MCV MCH MCHC RDW Plt Count Lymph % (Auto) [place] % (Auto) Eos % (Auto) Baso % (Auto) Lymph # [place] # Eos # Baso # Seg Neutrophils % Seg Neutrophils # Sodium Potassium Chloride Carbon Dioxide Anion Gap BUN Creatinine Estimated GFR BUN/Creatinine Ratio Glucose POC Glucose Calcium Total Bilirubin AST ALT Alkaline Phosphatase Total Creatine Kinase Troponin T Total Protein Albumin Albumin/Globulin Ratio Lipase Urine Color Urine Turbidity Urine pH Ur Specific [place] Urine Protein Urine Glucose (UA) Urine Ketones Urine Blood Urine Nitrite Urine Bilirubin Urine Urobilinogen Ur Leukocyte Esterase Urine WBC (Auto) Urine RBC (Auto) U Epithel Cells (Auto) Urine Mucus Salicylates < 0.3 L Urine Opiates Screen Urine Methadone Screen Acetaminophen < 5.0 L Ur Barbiturates Screen Ur Phencyclidine Scrn Ur Amphetamines Screen U Benzodiazepines Scrn Urine Cocaine Screen U Marijuana (THC) Screen Drugs of Abuse Note Plasma/Serum Alcohol < 0.01 07/17/19 07/17/19 22:14 22:14 WBC RBC Hgb Hct MCV MCH MCHC RDW Plt Count Lymph % (Auto) [place] % (Auto) Eos % (Auto) Baso % (Auto) Lymph # [place] # Eos # Baso # Seg Neutrophils % Seg Neutrophils # Sodium Potassium Chloride Carbon Dioxide Anion Gap BUN Creatinine Estimated GFR BUN/Creatinine Ratio Glucose POC Glucose Calcium Total Bilirubin AST ALT Alkaline Phosphatase Total Creatine Kinase Troponin T Total Protein Albumin Albumin/Globulin Ratio Lipase Urine Color Yellow Urine Turbidity Clear Urine pH 6.0 Ur Specific [place] 1.020 Urine Protein <15 mg/dl Urine Glucose (UA) Neg Urine Ketones Neg Urine Blood Neg Urine Nitrite Neg Urine Bilirubin Neg Urine Urobilinogen < 2.0 Ur Leukocyte Esterase Neg Urine WBC (Auto) 1.0 Urine RBC (Auto) 1.0 U Epithel Cells (Auto) < 1.0 Urine Mucus Few Salicylates Urine Opiates Screen Presumptive negative Urine Methadone Screen Presumptive negative Acetaminophen Ur Barbiturates Screen Presumptive negative Ur Phencyclidine Scrn Presumptive negative Ur Amphetamines Screen Presumptive negative U Benzodiazepines Scrn Presumptive negative Urine Cocaine Screen Presumptive negative U Marijuana (THC) Screen Presumptive negative Drugs of Abuse Note Disclamer Plasma/Serum Alcohol - EKG Data -: EKG Interpreted by Tn EKG shows normal: sinus rhythm - EKG Data When compared to previous EKG there are: previous EKG unavailable Interpretation: nonspecific ST-T wave jessica (T-wave inversion in lead aVL) - Radiology Data Radiology results: report reviewed (CT head, chest x-ray), image reviewed (CT head, chest x-ray) [address] [address] Cat Scan Report Signed Patient: SARABJIT FLORES MR#: [id number] : 1985 Acct:[id number] Age/Sex: 33 / M ADM Date: 07/17/19 Loc: ED Attending Dr: Ordering Physician: JACKIE YAP Date of Service: 07/17/19 Procedure(s): CT head/brain wo con Accession Number(s): [id number] cc: JACKIE YAP CT head/brain wo con INDICATION / CLINICAL INFORMATION: tingling left arm and left leg. TECHNIQUE: Axial CT imaging of the brain was obtained without contrast. Coronal and sagittal reformatted imaging obtained and reviewed. All CT scans at this location are performed using CT dose reduction for ALARA by means of automated exposure control. COMPARISON: None available. FINDINGS: No intracranial hemorrhage, mass, or midline shift is noted. No extra-axial fluid collection or suggestion of acute territorial infarction. Ventricular system and basilar cisterns are u nremarkable. Visualized paranasal sinuses and mastoid air cells are well aerated and clear. No calvarial abnormality. IMPRESSION: 1. Negative noncontrasted head CT scan. Signer Name: Rosalind Castillo MD Signed: 07/17/2019 10:05 PM Workstation Name: [id number] Transcribed By: JR Dictated By: Rosalind Castillo MD Electronically Authenticated By: Rosalind Castillo MD Signed Date/Time: 07/17/192204 DD/ 02 TD/TT: [address] [address] XRay Report Signed Patient: SARABJIT FLORES MR#: [id number] : 1985 Acct:[id number] Age/Sex: 33 / M ADM Date: 07/17/19 Loc: ED Attending Dr: Ordering Physician: MILADY LEDESMA MD Date of Service: 07/17/19 Procedure(s): XR chest 1V ap Accession Number(s): [id number] cc: MILADY LEDESMA MD Fluoro Time In Minutes: CHEST 1 VIEW 12:16 AM INDICATION / CLINICAL INFORMATION: Shortness of breath. Left side of body numbness and weakness for one hour. COMPARISON: None available. FINDINGS: SUPPORT DEVICES: None. HEART / MEDIASTINUM: The heart size and pulmonary vasculature are normal. LUNGS / PLEURA: No significant pulmonary or pleural abnormality. No pneumothorax . ADDITIONAL FINDINGS: No significant additional findings. IMPRESSION: No acute findings. Signer Name: Refugio Vines MD Signed: 07/18/2019 12:46 AM Workstation Name: [id number] Transcribed By: RT Dictated By: Refugio Vines MD Electronically Authenticated By: Refugio Vines MD Signed Date/Time: 07/18/1945 DD/ TD/TT: - Differential Diagnosis alcohol withdrawal, CVA, electrolyte imbalance Critical care attestation.: If time is entered above; I have spent that time in minutes in the direct care of this critically ill patient, excluding procedure time. ED Disposition Clinical Impression: Alcohol withdrawal, Left sided numbness Disposition: DC-09 OP ADMIT IP TO THIS HOSP Is pt being admited?: Yes Does the pt Need Aspirin: No Condition: Fair Time of Disposition: 02:34 (hospitalist paged (Dr Meeks))
--- NOTE | 2019-07-18 00:51 | XRay Report ---
CHEST 1 VIEW 12:16 AM INDICATION / CLINICAL INFORMATION: Shortness of breath. Left side of body numbness and weakness for one hour. COMPARISON: None available. FINDINGS: SUPPORT DEVICES: None. HEART / MEDIASTINUM: The heart size and pulmonary vasculature are normal. LUNGS / PLEURA: No significant pulmonary or pleural abnormality. No pneumothorax. ADDITIONAL FINDINGS: No significant additional findings. IMPRESSION: No acute findings. Signer Name: Refugio Vines MD Signed: 07/18/2019 12:46 AM Workstation Name: [id number]
[2019-07-18] MEDS ORDERED: LORazepam 2 MG/ML VIAL IV PRN ×3 (02:32)
[2019-07-18] MEDS ORDERED: ACETAMINOPHEN 325 MG TAB PO PRN (04:11)
[2019-07-18] MEDS ORDERED: ONDANSETRON 4 MG/2 ML INJ IV PRN (04:11)
[2019-07-18] MEDS ORDERED: NITROGLYCERIN 0.4 MG TAB SUBL SL PRN (04:11)
[2019-07-18] MEDS ORDERED: MORPHINE 2 MG/1 ML INJ IV PRN ×2 (04:11)
[2019-07-18] MEDS ORDERED: MAGNESIUM HYDROXIDE (MOM) ORAL LIQD UDC PO PRN (04:11)
--- NOTE | 2019-07-18 04:28 | History and Physical Report ---
History of Present Illness Date of examination: 07/18/19 Date of admission: 07/18/2019 Chief complaint: Left-sided chest pain Generalized weakness History of present illness: 83-year-old -[place] male with no significant past medical history presenting to the emergency room today complaining of confusion and left-sided numbness after waking up from sleep today. He also indicates that he has had some heartburn and some nausea but denies any vomiting. He has known history of alcohol abuse and last alcohol intake was 2 days ago. He consumes about 2 to 312 ounce beer daily and also takes some Liquor occasionally. He denies any headache or dizziness but noticed that he has become more anxious and tremulous. He has had some left-sided chest pain Past History Past Medical History: other (As my chart hold) Past Surgical History: No surgical history Social history: smoking (Less than half a pack of cigarette daily) Family history: CAD (Had mild cardiac infarct), diabetes (Had diabetes mellitus), stroke (Father had stroke) Medications and Allergies Allergies Allergy/AdvReac Type Severity Reaction Status Date / Time NSAIDS (Non-Steroidal Allergy Nausea Verified 07/23/13 10:05 Anti-Inflamma sulfamethoxazole Allergy Hives Verified 07/23/13 10:05 [From Bactrim] trimethoprim [From Bactrim] Allergy Hives Verified 07/23/13 10:05 Home Medications Medication Instructions Recorded Confirmed Last Taken Type HYDROcodone/ACETAMINOPHEN 1 each PO PRN PRN 03/31/18 04/01/18 03/31/18 History [Hydrocodone-Acetamin 5-325 mg] HYDROcodone/APAP 5-325 [[place] 1 each PO Q4HR PRN #20 tablet 04/01/18 Unknown Rx 5-325 mg TAB] Famotidine [Pepcid] 20 mg PO BID #20 tablet 04/24/19 Unknown Rx Famotidine [Pepcid] 20 mg PO BID #60 tablet 04/24/19 Unknown Rx Ondansetron [Zofran ODT TAB] 4 mg PO Q8HR PRN #20 tab.rapdis 04/24/19 Unknown Rx cephALEXin [Keflex] 500 mg PO Q6HR #28 capsule 04/24/19 Unknown Rx Active Meds: Active Medications Acetaminophen (Tylenol) 650 mg PO Q4H PRN PRN Reason: Pain MILD(1-3)/Fever >100.5/BEACH Aspirin (Ecotrin) 325 mg PO QDAY NEIL Lorazepam (Ativan) 2 mg IV Q1HR PRN PRN Reason: CIWA-Ar 8-15 Lorazepam (Ativan) 4 mg IV Q1HR PRN PRN Reason: CIWA-Ar 16-25 Lorazepam (Ativan) 4 mg IV Q15MIN PRN PRN Reason: CIWA-Ar >25 Magnesium Hydroxide (Milk Of Magnesia) 30 ml PO Q4H PRN PRN Reason: Constipation Morphine Sulfate (Morphine) 2 mg IV Q4H PRN PRN Reason: Pain, Moderate (4-6) Morphine Sulfate (Morphine) 2 mg IV Q5MIN PRN PRN Reason: Chest Pain unrelieved by NTG Nitroglycerin (Nitrostat) 0.4 mg SL Q5M PRN PRN Reason: Chest Pain Ondansetron HCl (Zofran) 4 mg IV Q8H PRN PRN Reason: Nausea And Vomiting Sodium Chloride (Sodium Chloride Flush Syringe 10 Ml) 10 ml IV BID NEIL Sodium Chloride (Sodium Chloride Flush Syringe 10 Ml) 10 ml IV PRN PRN PRN Reason: LINE FLUSH Sodium Chloride (Sodium Chloride Flush Syringe 10 Ml) 10 ml IV PRN PRN PRN Reason: LINE FLUSH Review of Systems Constitutional: no weight loss, no fever, no chills Ears, nose, mouth and throat: no nasal congestion, no dysphagia Cardiovascular: chest pain, no palpitations, no lightheadedness, no shortness of breath Respiratory: no cough, no congestion Gastrointestinal: no nausea, no vomiting, no diarrhea, no BRBPR, no melena Genitourinary Male: no dysuria, no hematuria, no flank pain, no nocturia Musculoskeletal: no neck stiffness, no low back pain Integumentary: no rash, no pruritis Psychiatric: anxiety Exam - Constitutional Vitals: Temp Pulse Resp BP Pulse Ox 98.6 F 94 H 18 161/120 98 07/17/19 21:22 07/18/19 00:03 07/17/19 21:22 07/17/19 21:22 07/17/19 21:22 General appearance: Present: no acute distress, well-nourished - EENT Eyes: Present: PERRL, EOM intact ENT: hearing intact, clear oral mucosa, dentition normal - Neck Neck: Present: supple, normal ROM - Respiratory Respiratory effort: normal Respiratory: bilateral: CTA - Cardiovascular Rhythm: regular Heart Sounds: Present: S1 & S2 - Extremities Extremities: no ischemia, pulses intact, pulses symmetrical, No edema, Full ROM Peripheral Pulses: within normal limits - Abdominal General gastrointestinal: Present: soft, non-tender, non-distended - Integumentary Integumentary: Present: clear, warm, dry - Musculoskeletal Musculoskeletal: strength equal bilaterally - Psychiatric Psychiatric: appropriate mood/affect, intact judgment & insight - Neurologic Neurologic: CNII-XII intact, moves all extremities Results - Labs CBC & Chem 7: 07/18/19 04:43 07/18/19 04:43 Labs: Abnormal lab results 07/17/19 07/17/19 07/17/19 Range/Units 21:48 21:48 21:48 MCV 99 H (84-94) fl MCH 34 H (28-32) pg Lymph # 0.8 L (1.2-5.4) K/mm3 Seg Neutrophils % 77.7 H (40.0-70.0) % Glucose 103 H (75-100) mg/dL AST 41 H (5-40) units/L Total Creatine Kinase 216 H (55-170) units/L Total Protein 8.4 H (6.3-8.2) g/dL Salicylates < 0.3 L (2.8-20.0) mg/dL Acetaminophen (10.0-30.0) ug/mL 07/17/19 Range/Units 21:48 MCV (84-94) fl MCH (28-32) pg Lymph # (1.2-5.4) K/mm3 Seg Neutrophils % (40.0-70.0) % Glucose (75-100) mg/dL AST (5-40) units/L Total Creatine Kinase (55-170) units/L Total Protein (6.3-8.2) g/dL Salicylates (2.8-20.0) mg/dL Acetaminophen < 5.0 L (10.0-30.0) ug/mL Assessment and Plan - Patient Problems (1) Alcohol withdrawal Current Visit: Yes Status: Acute Plan to address problem: Patient had admitted and placed on alcohol withdrawal protocol. We will monitor closely. Patient will also be placed on a banana bag containing multivitamins and folic acid. He has been placed on the CIWA protocol (2) Chest pain Current Visit: Yes Status: Acute Plan to address problem: We will monitor EKG and also monitor serial cardiac enzymes. Patient be placed on daily aspirin, sublingual nitroglycerin and IV morphine as needed. We will schedule for cardiac work-up . (3) DVT prophylaxis Current Visit: Yes Status: Acute Plan to address problem: Patient placed on subcutaneous heparin (4) Full code status Current Visit: Yes Status: Acute Plan to address problem: Patient placed on subcutaneous heparin.
[2019-07-18 05:23] LABS: Basophils % (Auto) 0.2 % (0.0-1.8); Eosinophils % (Auto) 0.2 % (0.0-4.3); Hematocrit 41.6 % (35.5-45.6); Hemoglobin 14.2 gm/dl (11.8-15.2); Lymphocytes % (Auto) 18.7 % (13.4-35.0); Mean Corpuscular HGB Conc 34 % (32-34); Mean Corpuscular Volume 99 fl (84-94); Monocytes # (Auto) 0.3 K/mm3 (0.0-0.8); Platelet Count 154 K/mm3 (140-440); Red Blood Count 4.23 M/mm3 (3.65-5.03); Red Cell Distribution Width 12.9 % (13.2-15.2)
[2019-07-18 05:40] LABS: BUN/Creatinine Ratio 9; Blood Urea Nitrogen 9 mg/dL (9-20); Calcium 8.9 mg/dL (8.4-10.2); Hemolysis Index 23
[2019-07-18] MEDS ORDERED: LORazepam 2 MG/ML VIAL ONE (07:07)
[2019-07-18] MEDS ORDERED: REGADENOSON 0.4 MG/5 ML INJ IV ONE (08:56)
--- NOTE | 2019-07-18 11:43 | Event Note ---
Date: 07/18/19 This is a follow-up from an admission earlier this morning. We will continue plan as outlined in the H&P. Labs reviewed. Follow-up EKG and serial cardiac enzymes. Continue CIWA protocol. Time spent 25 minutes.
[2019-07-18] MEDS: SODIUM CHLORIDE 0.9% 1000 ML 1,000 ML IV SCH ×2 (12:04→18:42)
--- NOTE | 2019-07-18 12:04 | Consultation ---
History of Present Illness Consult date: 07/18/19 Consult reason: chest pain History of present illness: 83-year-old -[place] male with no significant past medical history presenting to the emergency room complaining of confusion and left-sided numbness after waking up from sleep today. He also indicates that he has had some heartburn and some nausea but denies any vomiting. He has known history of alcohol abuse and last alcohol intake was 2 days ago. He denies orthopnea, pnd, palpitations, dizziness or syncope. Past History Past Surgical History: No surgical history Social history: smoking (Less than half a pack of cigarette daily) Family history: CAD (Had mild cardiac infarct), diabetes (Had diabetes mellitus), stroke (Father had stroke) Medications and Allergies Allergies Allergy/AdvReac Type Severity Reaction Status Date / Time NSAIDS (Non-Steroidal Allergy Nausea Verified 07/23/13 10:05 Anti-Inflamma sulfamethoxazole Allergy Hives Verified 07/23/13 10:05 [From Bactrim] trimethoprim [From Bactrim] Allergy Hives Verified 07/23/13 10:05 Home Medications Medication Instructions Recorded Confirmed Last Taken Type HYDROcodone/ACETAMINOPHEN 1 each PO PRN PRN 03/31/18 07/19/19 03/31/18 History [Hydrocodone-Acetamin 5-325 mg] HYDROcodone/APAP 5-325 [[place] 1 each PO Q4HR PRN #20 tablet 04/01/18 07/19/19 Unknown Rx 5-325 mg TAB] Famotidine [Pepcid] 20 mg PO BID #20 tablet 04/24/19 07/19/19 Unknown Rx Famotidine [Pepcid] 20 mg PO BID #60 tablet 04/24/19 07/19/19 Unknown Rx Ondansetron [Zofran ODT TAB] 4 mg PO Q8HR PRN #20 tab.rapdis 04/24/19 07/19/19 Unknown Rx Active Meds: Active Medications Acetaminophen (Tylenol) 650 mg PO Q4H PRN PRN Reason: Pain MILD(1-3)/Fever >100.5/BEACH Aspirin (Ecotrin) 325 mg PO QDAY NEIL Heparin Sodium (Porcine) (Heparin) 5,000 unit SUB-Q Q8HR NEIL Thiamine HCl 100 mg/ Folic Acid 1 mg/ Multivitamins/Minerals 10 ml/ Sodium Chloride 1,011.2 mls @ 250 mls/hr IV Q24H NEIL Sodium Chloride (Nacl 0.9% 1000 Ml) 1,000 mls @ 125 mls/hr IV DIRECT NEIL Lorazepam (Ativan) 2 mg IV Q1HR PRN PRN Reason: CIWA-Ar 8-15 Last Admin: 07/18/19 07:16 Dose: 2 mg Documented by: Lorazepam (Ativan) 4 mg IV Q1HR PRN PRN Reason: CIWA-Ar 16-25 Lorazepam (Ativan) 4 mg IV Q15MIN PRN PRN Reason: CIWA-Ar >25 Magnesium Hydroxide (Milk Of Magnesia) 30 ml PO Q4H PRN PRN Reason: Constipation Morphine Sulfate (Morphine) 2 mg IV Q4H PRN PRN Reason: Pain, Moderate (4-6) Morphine Sulfate (Morphine) 2 mg IV Q5MIN PRN PRN Reason: Chest Pain unrelieved by NTG Nitroglycerin (Nitrostat) 0.4 mg SL Q5M PRN PRN Reason: Chest Pain Ondansetron HCl (Zofran) 4 mg IV Q8H PRN PRN Reason: Nausea And Vomiting Sodium Chloride (Sodium Chloride Flush Syringe 10 Ml) 10 ml IV BID NEIL Sodium Chloride (Sodium Chloride Flush Syringe 10 Ml) 10 ml IV PRN PRN PRN Reason: LINE FLUSH Review of Systems All systems: negative (positives mentioned in HPI) Physical Examination Vital Signs Temp Resp BP 98.6 F 18 161/120 07/17/19 20:57 07/17/19 20:57 07/17/19 20:57 General appearance: no acute distress HEENT: Positive: PERRL Neck: Positive: neck supple Cardiac: Positive: Reg Rate and Rhythm, S1/S2 Lungs: Positive: Normal Exam Abdomen: Positive: Soft Extremities: Present: normal Results 07/19/19 09:09 07/18/19 04:43 Cardiac Enzymes 07/17/19 Range/Units 21:48 AST 41 H (5-40) units/L CBC 07/17/19 07/18/19 Range/Units 21:48 04:43 WBC 4.9 5.2 (4.5-11.0) K/mm3 RBC 4.16 4.23 (3.65-5.03) M/mm3 Hgb 14.1 14.2 (11.8-15.2) gm/dl Hct 41.0 41.6 (35.5-45.6) % Plt Count 156 154 (140-440) K/mm3 Lymph # 0.8 L 1.0 L (1.2-5.4) K/mm3 Mobile # 0.3 0.3 (0.0-0.8) K/mm3 Eos # 0.0 0.0 (0.0-0.4) K/mm3 Baso # 0.0 0.0 (0.0-0.1) K/mm3 Comprehensive Metabolic Panel 07/17/19 07/18/19 Range/Units 21:48 04:43 Sodium 139 138 (137-145) mmol/L Potassium 3.9 3.7 (3.6-5.0) mmol/L Chloride 100.1 100.7 (98-107) mmol/L Carbon Dioxide 22 23 (22-30) mmol/L BUN 10 9 (9-20) mg/dL Creatinine 1.0 1.0 (0.8-1.5) mg/dL Glucose 103 H 96 (75-100) mg/dL Calcium 9.3 8.9 (8.4-10.2) mg/dL AST 41 H (5-40) units/L ALT 25 (7-56) units/L Alkaline Phosphatase 76 (35-129) units/L Total Protein 8.4 H (6.3-8.2) g/dL Albumin 4.5 (3.9-5) g/dL Assessment and Plan (1) Alcohol withdrawal - management per primary (2) Chest pain - troponin negative. EKG shows sinus rhythm with nonspecific changes. stress test today shows small fixed anterior defect, likely attenuation or artifact. Small fixed inferior defect. EF 46%. Recommend medical therapy with aggressive risk factor modification. Echocardiogram pending.
[2019-07-18] MEDS: HEPARIN 5,000 UNIT/1 ML VIAL SUB-Q SCH ×2 (13:35→21:32)
[2019-07-18] MEDS ORDERED: hydrALAZINE 20 MG/1 ML INJ IV ONE (18:27)
[2019-07-19] MEDS: SODIUM CHLORIDE 0.9% 1000 ML 1,000 ML IV SCH (00:45)
[2019-07-19] MEDS ORDERED: hydrALAZINE 20 MG/1 ML INJ IV ONE (00:47)
[2019-07-19] MEDS: HEPARIN 5,000 UNIT/1 ML VIAL SUB-Q SCH ×3 (05:43→21:42)
[2019-07-19] MEDS: THIAMINE 100 MG, FOLIC ACID 1 MG, MULTIPLE VITAMIN INJ, ADULT 10 ML in SODIUM CHLORIDE ... IV SCH (05:43)
[2019-07-19] MEDS ORDERED: hydrALAZINE 20 MG/1 ML INJ IV PRN (09:06)
[2019-07-19 09:37] LABS: Basophils % (Auto) 1.2 % (0.0-1.8); Eosinophils % (Auto) 0.9 % (0.0-4.3); Hemoglobin 14.3 gm/dl (11.8-15.2); Lymphocytes # (Auto) 1.3 K/mm3 (1.2-5.4); Lymphocytes % (Auto) 31.2 % (13.4-35.0); Mean Corpuscular HGB Conc 34 % (32-34); Mean Corpuscular Volume 100 fl (84-94); Monocytes # (Auto) 0.4 K/mm3 (0.0-0.8); Monocytes % (Auto) 9.6 % (0.0-7.3); Red Blood Count 4.22 M/mm3 (3.65-5.03); Red Cell Distribution Width 13.1 % (13.2-15.2)
[2019-07-19 09:47] LABS: INR 1.04 (0.87-1.13); Partial Thromboplastin Time 29.1 Sec. (24.2-36.6)
[2019-07-19] MEDS ORDERED: ASPIRIN EC 325 MG TAB PO SCH (10:00)
[2019-07-19 10:30] LABS: BUN/Creatinine Ratio 8; Blood Urea Nitrogen 7 mg/dL (9-20); Calcium 8.8 mg/dL (8.4-10.2); Hemolysis Index 20
--- NOTE | 2019-07-19 10:44 | Magnetic Resonance Report ---
MRI BRAIN WITHOUT CONTRAST INDICATION / CLINICAL INFORMATION: Left sided numbness. TECHNIQUE: Multiplanar, multisequence MR images of the brain were obtained. COMPARISON: None available. FINDINGS: BRAIN / INTRACRANIAL CONTENTS: On the FLAIR sequence, there is couple small hypertensive foci involvi ng cerebral white matter which are nonspecific and may be incidental. Findings may reflect mild micro vascular angiopathy. The diffusion imaging reveals no evidence of acute infarction. The ventricular s ystem is within normal limits in size and configuration. No extra-axial fluid collections or signific ant mass effect is identified. CRANIOCERVICAL JUNCTION: No significant abnormality. VASCULAR FLOW-VOIDS: No significant abnormality. ORBITS: No significant abnormality of visualized orbits. SINUSES / MASTOIDS: There is mild mucosal thickening involving the ethmoid and inferior left maxillar y sinuses. ADDITIONAL FINDINGS: None. IMPRESSION: 1. There are a couple of scattered small hyperintense foci involving cerebral white matter which are nonspecific as described. There is no evidence of recent infarction. 2. There is mild mucosal thickening involving the ethmoid and left maxillary sinuses. Signer Name: Nixon Howell MD Signed: 07/19/2019 10:39 AM Workstation Name: [id number]
[2019-07-19 11:06] LABS: Platelet Count 149 K/mm3 (140-440)
--- NOTE | 2019-07-19 11:17 | Progress Note ---
<CATARINO SOTO - Last Filed: 07/19/19 11:14> Assessment and Plan - Patient Problems (1) Chest pain Current Visit: Yes Status: Acute Plan to address problem: Atypical chest pain negative troponins ECG -no acute ischemic changes no reversible ischemia by MPI this admission normal LVEF 55-60% by echo this admission No further cardiac workup indicated. We will sign off. Subjective Date of service: 07/19/19 Interval history: Patient denies chest pain and shortness of breath. Objective Vital Signs Temp Pulse Resp BP BP Pulse Ox 07/19/19 09:05 85 165/118 07/19/19 04:42 98.0 F 95 H 18 159/105 98 07/19/19 00:42 90 171/106 07/18/19 23:43 98.6 F 90 18 171/106 99 07/18/19 20:50 98.6 F 82 94 H 171/68 07/18/19 18:41 82 169/123 07/18/19 17:54 97.6 F 87 18 169/123 99 07/18/19 16:28 81 07/18/19 13:50 18 96 07/18/19 12:01 93 H 18 155/111 92 - Physical Examination General: No Apparent Distress HEENT: Positive: PERRL Neck: Positive: neck supple Cardiac: Positive: Reg Rate and Rhythm Lungs: Positive: Decreased Breath Sounds Neuro: Positive: Grossly Intact Abdomen: Positive: Soft Extremities: Present: normal - Labs and Meds Coagulation 07/19/19 Range/Units 09:09 PT 13.7 (12.2-14.9) Sec. INR 1.04 (0.87-1.13) APTT 29.1 (24.2-36.6) Sec. CBC 07/19/19 Range/Units 09:09 WBC 4.2 L (4.5-11.0) K/mm3 RBC 4.22 (3.65-5.03) M/mm3 Hgb 14.3 (11.8-15.2) gm/dl Hct 42.0 (35.5-45.6) % Plt Count 149 (140-440) K/mm3 Lymph # 1.3 (1.2-5.4) K/mm3 Coleman # 0.4 (0.0-0.8) K/mm3 Eos # 0.0 (0.0-0.4) K/mm3 Baso # 0.0 (0.0-0.1) K/mm3 Comprehensive Metabolic Panel 07/19/19 Range/Units 09:09 Sodium 139 (137-145) mmol/L Potassium 3.7 (3.6-5.0) mmol/L Chloride 105.7 (98-107) mmol/L Carbon Dioxide 18 L (22-30) mmol/L BUN 7 L (9-20) mg/dL Creatinine 0.9 (0.8-1.5) mg/dL Glucose 98 (75-100) mg/dL Calcium 8.8 (8.4-10.2) mg/dL <MORENA MANDUJANO - Last Filed: 07/20/19 10:22> Assessment and Plan I've seen and evaluated the patient and agree with the assessment and plan. Patient is presenting with atypical chest pain. The patient's stress test showed small fixed anterior and inferior defects. Patient's echocardiogram showed normal LV function. No further cardiac evaluation at this time. Continue maximal medical therapy and risk factor modification. We'll follow-up with the patient in outpatient setting. Objective Vital Signs Temp Pulse Resp BP BP Pulse Ox 07/20/19 08:40 18 07/20/19 04:15 99.0 F 89 18 140/87 98 07/20/19 00:00 79 07/19/19 23:17 98.2 F 82 18 148/103 97 07/19/19 19:55 98.9 F 89 17 154/101 92 07/19/19 17:22 140/87 07/19/19 17:14 85 140/87 07/19/19 16:47 98.4 F 18 140/87 99 07/19/19 16:00 111 H 07/19/19 12:17 98.0 F 116 H 20 149/85 96 07/19/19 11:19 85 168/112 - Labs and Meds CBC 07/19/19 Range/Units 09:09 Plt Count 149 (140-440) K/mm3 Comprehensive Metabolic Panel 07/19/19 Range/Units 09:09 Sodium 139 (137-145) mmol/L Potassium 3.7 (3.6-5.0) mmol/L Chloride 105.7 (98-107) mmol/L Carbon Dioxide 18 L (22-30) mmol/L BUN 7 L (9-20) mg/dL Creatinine 0.9 (0.8-1.5) mg/dL Glucose 98 (75-100) mg/dL Calcium 8.8 (8.4-10.2) mg/dL
--- NOTE | 2019-07-19 15:51 | Consultation ---
History of Present Illness Consult date: 07/19/19 Reason for Consult: left sided numbness Chief complaint: left sided numbness History of present illness: Patient is a 33-year-old man with a history of asthma in childhood, GERD. 2 days ago, the patient was experiencing heartburn, after which she took Prilosec and then later to contact. After waking up from the nap about 1-1/2 hours later, at around 7:30 PM, the patient was experiencing numbness left face, arm, and leg. He also began experience shortness of breath, as well as generalized tremulousness. He felt like he was about to pass out, however he did not lose consciousness. Patient was then brought to [facility] for further evaluation. Of note, patient has been noted to have elevated blood pressure since admission, and was unaware of a diagnosis of HTN in the past. He does endorse that he's been under increased amounts of psychological stress recently, including deaths in the family, and the end of a long-term relationship. Past History Past Medical History: other (asthma, GERD) Past Surgical History: No surgical history Social history: smoking (Less than half a pack of cigarette daily) Family history: CAD (Had mild cardiac infarct), diabetes (Had diabetes mellitus), stroke (Father had stroke) Medications and Allergies Allergies Allergy/AdvReac Type Severity Reaction Status Date / Time NSAIDS (Non-Steroidal Allergy Nausea Verified 07/23/13 10:05 Anti-Inflamma sulfamethoxazole Allergy Hives Verified 07/23/13 10:05 [From Bactrim] trimethoprim [From Bactrim] Allergy Hives Verified 07/23/13 10:05 Home Medications Medication Instructions Recorded Confirmed Last Taken Type HYDROcodone/ACETAMINOPHEN 1 each PO PRN PRN 03/31/18 07/19/19 03/31/18 History [Hydrocodone-Acetamin 5-325 mg] HYDROcodone/APAP 5-325 [[place] 1 each PO Q4HR PRN #20 tablet 04/01/18 07/19/19 Unknown Rx 5-325 mg TAB] Famotidine [Pepcid] 20 mg PO BID #20 tablet 04/24/19 07/19/19 Unknown Rx Famotidine [Pepcid] 20 mg PO BID #60 tablet 04/24/19 07/19/19 Unknown Rx Ondansetron [Zofran ODT TAB] 4 mg PO Q8HR PRN #20 tab.rapdis 04/24/19 07/19/19 Unknown Rx Active Meds: Active Medications Acetaminophen (Tylenol) 650 mg PO Q4H PRN PRN Reason: Pain MILD(1-3)/Fever >100.5/BEACH Amlodipine Besylate (Amlodipine) 5 mg PO QDAY [facility] Heparin Sodium (Porcine) (Heparin) 5,000 unit SUB-Q Q8HR [facility] Last Admin: 07/19/19 13:22 Dose: 5,000 unit Documented by: Hydralazine HCl (Apresoline) 10 mg IV Q4HR PRN PRN Reason: SBP>160 or DBP>110 Last Admin: 07/19/19 11:19 Dose: 10 mg Documented by: Thiamine HCl 100 mg/ Folic Acid 1 mg/ Multivitamins/Minerals 10 ml/ Sodium Chloride 1,011.2 mls @ 250 mls/hr IV Q24H [facility] Last Admin: 07/19/19 05:43 Dose: 250 mls/hr Documented by: Sodium Chloride (Nacl 0.9% 1000 Ml) 1,000 mls @ 125 mls/hr IV DIRECT [facility] Last Admin: 07/19/19 00:45 Dose: 125 mls/hr Documented by: Lorazepam (Ativan) 2 mg IV Q1HR PRN PRN Reason: CIWA-Ar 8-15 Last Admin: 07/18/19 07:16 Dose: 2 mg Documented by: Lorazepam (Ativan) 4 mg IV Q1HR PRN PRN Reason: CIWA-Ar 16-25 Lorazepam (Ativan) 4 mg IV Q15MIN PRN PRN Reason: CIWA-Ar >25 Magnesium Hydroxide (Milk Of Magnesia) 30 ml PO Q4H PRN PRN Reason: Constipation Morphine Sulfate (Morphine) 2 mg IV Q4H PRN PRN Reason: Pain, Moderate (4-6) Morphine Sulfate (Morphine) 2 mg IV Q5MIN PRN PRN Reason: Chest Pain unrelieved by NTG Nitroglycerin (Nitrostat) 0.4 mg SL Q5M PRN PRN Reason: Chest Pain Ondansetron HCl (Zofran) 4 mg IV Q8H PRN PRN Reason: Nausea And Vomiting Sodium Chloride (Sodium Chloride Flush Syringe 10 Ml) 10 ml IV BID [facility] Last Admin: 07/19/19 11:23 Dose: 10 ml Documented by: Sodium Chloride (Sodium Chloride Flush Syringe 10 Ml) 10 ml IV PRN PRN PRN Reason: LINE FLUSH Review of Systems All systems: negative Neurological: numbness Physical Examination - Vital Signs Vital Signs: Vital Signs Temp Resp BP 98.6 F 18 161/120 07/17/19 20:57 07/17/19 20:57 07/17/19 20:57 - Physical Exam Narrative exam: Patient is alert, awake, oriented 4, follows complex commands.. PERRL, EOMI, VFF, no facial weakness noted, tongue midline, b/l intact to LT. No dysarthria or aphasia noted. 5/5 strength in UE, 5/5 in LE. Mild to LT in left face/arm/leg. B/l intact to FTN and HTS. 2+ reflexes throughout. - Constitutional General appearance: comfortable - EENT EENT: Present: ATNC, PERRL, mucous membranes moist, hearing intact, vision intact - Respiratory Respiratory: Present: lungs clear, normal breath sounds - Cardiovascular Cardiovascular: Present: regular rate, normal S1, normal S2 Extremities: Present: no clubbing, cyanosis, no inflammation - Gastrointestinal Gastrointestinal: Present: normoactive bowel sounds, soft, non-tender - Integumentary Integumentary: Present: normal - Musculoskeletal Musculoskeletal: Present: no fluid collection, no pain - Psychiatric Psychiatric: Present: mood/affect appropriate Results - Laboratory Findings CBC and BMP: 07/19/19 09:09 07/19/19 09:09 Abnormal Lab Findings: Abnormal Labs 07/17/19 07/17/19 07/17/19 21:48 21:48 21:48 WBC MCV 99 H MCH 34 H RDW Person % (Auto) Lymph # 0.8 L Seg Neutrophils % 77.7 H Carbon Dioxide BUN Glucose 103 H AST 41 H Total Creatine Kinase 216 H Total Protein 8.4 H Salicylates < 0.3 L Acetaminophen 07/17/19 07/18/19 07/19/19 21:48 04:43 09:09 WBC 4.2 L MCV 99 H 100 H MCH 34 H 34 H RDW 12.9 L 13.1 L Person % (Auto) 9.6 H Lymph # 1.0 L Seg Neutrophils % 74.9 H Carbon Dioxide BUN Glucose AST Total Creatine Kinase Total Protein Salicylates Acetaminophen < 5.0 L 07/19/19 09:09 WBC MCV MCH RDW Person % (Auto) Lymph # Seg Neutrophils % Carbon Dioxide 18 L BUN 7 L Glucose AST Total Creatine Kinase Total Protein Salicylates Acetaminophen Assessment and Plan Patient is a 33-year-old man with a history of asthma in childhood, GERD, who p/w left sided numbness. According the patient's clinical findings, it is possible that she's had hypertensive urgency, as the patient previously was unaware of a diagnosis of hypertension, and has been noted to have elevated blood pressure since admission. Alternatively, the patient may also have conversion disorder, as he endorses that he has been under an increased amount of psychological stress recently. The fact that the patient experienced shortness of breath and generalized tremulousness at the onset of symptoms, further indicates that there may be a psychological aspect to his current symptoms. On exam, the patient was noted to have mild tremulousness when checking muscle strength, which was notable in all extremities, however this was noted to be distractible. Plan: 1. Hypertensive urgency: - Likely etiology of left sided numbness, which has now improved since onset - MRI brain: no evidence of acute abnormality - Will check CTA head/neck - Recommend for patient to be referred to psychiatry, which can be done as outpatient, for possible conversion d/o. - Recommend target BP of normotension, as there is no evidence stroke on MRI brain. - Will continue to monitor patient. Thank you for allowing me to take part in the care of this patient. Oj Mayberry MD Neurology
[2019-07-19] MEDS: amLODIPine 5 MG TAB PO SCH (17:14)
--- NOTE | 2019-07-19 17:19 | Progress Note ---
Assessment and Plan Assessment and plan: Left sided numbness MRI Brain consulted Neurology Chest pain We will monitor EKG and also monitor serial cardiac enzymes. Patient be placed on daily aspirin, sublingual nitroglycerin and IV morphine as needed. Stress test DVT prophylaxis Patient placed on subcutaneous heparin Full code status History Interval history: Chest pain Left sided numbness Hospitalist Physical - Physical exam Narrative exam: GEN: Not in acute distress, lying in bed HEENT: Normocephalic, atraumatic, Neck: supple, No JVD Lungs: Clear to auscultation bilaterally, no wheeze, heart;S1 and S2 reg, no murmurs Abd:soft, non tender, non distended, normal bowel sounds Ext: No edema, no clubbing, no cyanosis Neuro: AAO X 3, no focal neurological signs - Constitutional Vitals: Temp Pulse Resp BP Pulse Ox 98.4 F 85 18 140/87 99 07/19/19 16:47 07/19/19 17:14 07/19/19 16:47 07/19/19 17:14 07/19/19 16:47 General appearance: Present: no acute distress Results - Labs CBC & Chem 7: 07/19/19 09:09 07/19/19 09:09 Labs: Laboratory Last Values WBC 4.2 K/mm3 (4.5-11.0) L 07/19/19 09:09 RBC 4.22 M/mm3 (3.65-5.03) 07/19/19 09:09 Hgb 14.3 gm/dl (11.8-15.2) 07/19/19 09:09 Hct 42.0 % (35.5-45.6) 07/19/19 09:09 MCV 100 fl (84-94) H 07/19/19 09:09 MCH 34 pg (28-32) H 07/19/19 09:09 MCHC 34 % (32-34) 07/19/19 09:09 RDW 13.1 % (13.2-15.2) L 07/19/19 09:09 Plt Count 149 K/mm3 (140-440) 07/19/19 09:09 Lymph % (Auto) 31.2 % (13.4-35.0) 07/19/19 09:09 [place] % (Auto) 9.6 % (0.0-7.3) H 07/19/19 09:09 Eos % (Auto) 0.9 % (0.0-4.3) 07/19/19 09:09 Baso % (Auto) 1.2 % (0.0-1.8) 07/19/19 09:09 Lymph # 1.3 K/mm3 (1.2-5.4) 07/19/19 09:09 [place] # 0.4 K/mm3 (0.0-0.8) 07/19/19 09:09 Eos # 0.0 K/mm3 (0.0-0.4) 07/19/19 09:09 Baso # 0.0 K/mm3 (0.0-0.1) 07/19/19 09:09 Seg Neutrophils % 57.1 % (40.0-70.0) 07/19/19 09:09 Seg Neutrophils # 2.4 K/mm3 (1.8-7.7) 07/19/19 09:09 PT 13.7 Sec. (12.2-14.9) 07/19/19 09:09 INR 1.04 (0.87-1.13) 07/19/19 09:09 APTT 29.1 Sec. (24.2-36.6) 07/19/19 09:09 Sodium 139 mmol/L (137-145) 07/19/19 09:09 Potassium 3.7 mmol/L (3.6-5.0) 07/19/19 09:09 Chloride 105.7 mmol/L (98-107) 07/19/19 09:09 Carbon Dioxide 18 mmol/L (22-30) L 07/19/19 09:09 Anion Gap 19 mmol/L 07/19/19 09:09 BUN 7 mg/dL (9-20) L 07/19/19 09:09 Creatinine 0.9 mg/dL (0.8-1.5) 07/19/19 09:09 Estimated GFR > 60 ml/min 07/19/19 09:09 BUN/Creatinine Ratio 8 % 07/19/19 09:09 Glucose 98 mg/dL (75-100) 07/19/19 09:09 POC Glucose 89 (70-105) 07/17/19 21:14 Calcium 8.8 mg/dL (8.4-10.2) 07/19/19 09:09 Total Bilirubin 0.50 mg/dL (0.1-1.2) 07/17/19 21:48 AST 41 units/L (5-40) H 07/17/19 21:48 ALT 25 units/L (7-56) 07/17/19 21:48 Alkaline Phosphatase 76 units/L (35-129) 07/17/19 21:48 Total Creatine Kinase 216 units/L (55-170) H 07/17/19 21:48 Troponin T < 0.010 ng/mL (0.00-0.029) 07/18/19 11:52 Total Protein 8.4 g/dL (6.3-8.2) H 07/17/19 21:48 Albumin 4.5 g/dL (3.9-5) 07/17/19 21:48 Albumin/Globulin Ratio 1.2 % 07/17/19 21:48 Lipase 17 units/L (13-60) 07/17/19 21:48 Urine Color Yellow (Yellow) 07/17/19 22:14 Urine Turbidity Clear (Clear) 07/17/19 22:14 Urine pH 6.0 (5.0-7.0) 07/17/19 22:14 Ur Specific [place] 1.020 (1.003-1.030) 07/17/19 22:14 Urine Protein <15 mg/dl mg/dL (Negative) 07/17/19 22:14 Urine Glucose (UA) Neg mg/dL (Negative) 07/17/19 22:14 Urine Ketones Neg mg/dL (Negative) 07/17/19 22:14 Urine Blood Neg (Negative) 07/17/19 22:14 Urine Nitrite Neg (Negative) 07/17/19 22:14 Urine Bilirubin Neg (Negative) 07/17/19 22:14 Urine Urobilinogen < 2.0 mg/dL (<2.0) 07/17/19 22:14 Ur Leukocyte Esterase Neg (Negative) 07/17/19 22:14 Urine WBC (Auto) 1.0 /HPF (0.0-6.0) 07/17/19 22:14 Urine RBC (Auto) 1.0 /HPF (0.0-6.0) 07/17/19 22:14 U Epithel Cells (Auto) < 1.0 /HPF (0-13.0) 07/17/19 22:14 Urine Mucus Few /HPF 07/17/19 22:14 Salicylates < 0.3 mg/dL (2.8-20.0) L 07/17/19 21:48 Urine Opiates Screen Presumptive negative 07/17/19 22:14 Urine Methadone Screen Presumptive negative 07/17/19 22:14 Acetaminophen < 5.0 ug/mL (10.0-30.0) L 07/17/19 21:48 Ur Barbiturates Screen Presumptive negative 07/17/19 22:14 Ur Phencyclidine Scrn Presumptive negative 07/17/19 22:14 Ur Amphetamines Screen Presumptive negative 07/17/19 22:14 U Benzodiazepines Scrn Presumptive negative 07/17/19 22:14 Urine Cocaine Screen Presumptive negative 07/17/19 22:14 U Marijuana (THC) Screen Presumptive negative 07/17/19 22:14 Drugs of Abuse Note Disclamer 07/17/19 22:14 Plasma/Serum Alcohol < 0.01 % (0-0.07) 07/17/19 21:48 Active Medications - Current Medications Current Medications: Generic Name Dose Route Start Last Admin Trade Name Freq PRN Reason Stop Dose Admin Acetaminophen 650 mg 07/18/19 04:11 Tylenol PO Q4H PRN Pain MILD(1-3)/Fever >100.5/BEACH Amlodipine Besylate 5 mg 07/19/19 18:00 07/19/19 17:14 Amlodipine PO 5 mg QDAY NEIL Administration Heparin Sodium (Porcine) 5,000 unit 07/18/19 14:00 07/19/19 13:22 Heparin SUB-Q 5,000 unit Q8HR NEIL Administration Hydralazine HCl 10 mg 07/19/19 09:06 07/19/19 11:19 Apresoline IV 10 mg Q4HR PRN Administration SBP>160 or DBP>110 Thiamine HCl 100 mg/ Folic 1,011.2 mls @ 250 mls/hr 07/19/19 06:00 07/19/19 05:43 Acid 1 mg/ Multivitamins/ IV 250 mls/hr Minerals 10 ml/ Sodium Q24H NEIL Administration Chloride Sodium Chloride 1,000 mls @ 125 mls/hr 07/18/19 09:00 07/19/19 00:45 Nacl 0.9% 1000 Ml IV 125 mls/hr DIRECT NEIL Administration Lorazepam 2 mg 07/18/19 02:32 07/18/19 07:16 Ativan IV 2 mg Q1HR PRN Administration CIWA-Ar 8-15 Lorazepam 4 mg 07/18/19 02:32 Ativan IV Q1HR PRN CIWA-Ar 16-25 Lorazepam 4 mg 07/18/19 02:32 Ativan IV Q15MIN PRN CIWA-Ar >25 Magnesium Hydroxide 30 ml 07/18/19 04:11 Milk Of Magnesia PO Q4H PRN Constipation Morphine Sulfate 2 mg 07/18/19 04:11 Morphine IV Q4H PRN Pain, Moderate (4-6) Morphine Sulfate 2 mg 07/18/19 04:11 Morphine IV Q5MIN PRN Chest Pain unrelieved by NTG Nitroglycerin 0.4 mg 07/18/19 04:11 Nitrostat SL Q5M PRN Chest Pain Ondansetron HCl 4 mg 07/18/19 04:11 Zofran IV Q8H PRN Nausea And Vomiting Sodium Chloride 10 ml 07/18/19 10:00 07/19/19 11:23 Sodium Chloride Flush Syringe 10 Ml IV 10 ml BID NEIL Administration Sodium Chloride 10 ml 07/18/19 04:11 Sodium Chloride Flush Syringe 10 Ml IV PRN PRN LINE FLUSH
--- NOTE | 2019-07-19 20:41 | Cat Scan Report ---
CT angio head INDICATION / CLINICAL INFORMATION: 33 years Male; left sided numbness. TECHNIQUE: Thin cut axial images obtained through the head during IV bolus contrast administration. S agittal, coronal, and 3 plane MIP reconstructions performed by the technologist. NASCET type criteria used evaluate stenoses. Automated exposure control utilized for radiation reduction purposes. COMPARISON: MRI brain-07/19/2019; CT head-07/17/2019 FINDINGS: INTERNAL CAROTID ARTERIES: No significant narrowing appreciated. VERTEBROBASILAR SYSTEM: No significant narrowing appreciated. DISTAL BRANCHES: Distal branches of the anterior, middle, and posterior cerebral arteries are fairly symmetric in appearance and number. ANEURYSM: None identified. ADDITIONAL FINDINGS: Remainder of the surrounding soft tissues are grossly normal. IMPRESSION: No significant abnormality on this CTA of the head. Signer Name: Arnie Gunter MD, III Signed: 07/19/2019 8:37 PM Workstation Name: [id number]
--- NOTE | 2019-07-19 20:45 | Cat Scan Report ---
CT angio neck INDICATION / CLINICAL INFORMATION: 33 years Male; left sided numbness. TECHNIQUE: Thin cut axial images obtained through the head during IV bolus contrast administration. S agittal, coronal, and 3 plane MIP reconstructions performed by the technologist. NASCET type criteria used evaluate stenoses. All CT scans at this location are performed using CT dose reduction for ALAR A by means of automated exposure control. COMPARISON: None available. FINDINGS: ARCH: Normal aortic arch branching suggested. CAROTID ARTERIES: The visualized common and internal carotid arteries are widely patent. VERTEBRAL ARTERIES: Left dominant vertebral system seen. No significant stenosis appreciated. ADDITIONAL FINDINGS: Mild to moderate mucosal thickening suggested in the ethmoids. Small left paracentral disc protrusion suggested at C4-5. No significant canal stenosis. IMPRESSION: No significant stenosis appreciated on this CTA of the neck. Signer Name: Arnie Gunter MD, III Signed: 07/19/2019 8:41 PM Workstation Name: [id number]
[2019-07-20] MEDS: THIAMINE 100 MG, FOLIC ACID 1 MG, MULTIPLE VITAMIN INJ, ADULT 10 ML in SODIUM CHLORIDE ... IV SCH (05:46)
[2019-07-20] MEDS: HEPARIN 5,000 UNIT/1 ML VIAL SUB-Q SCH ×2 (05:47→13:26)
[2019-07-20] MEDS: amLODIPine 5 MG TAB PO SCH (10:23)
--- NOTE | 2019-07-20 12:03 | Progress Note ---
Assessment and Plan Patient is a 33-year-old man with a history of asthma in childhood, GERD, who p/w left sided numbness. According the patient's clinical findings, it is possible that she's had hypertensive urgency, as the patient previously was unaware of a diagnosis of hypertension, and has been noted to have elevated blood pressure since admission. Alternatively, the patient may also have conversion disorder, as he endorses that he has been under an increased amount of psychological stress recently. The fact that the patient experienced shortness of breath and generalized tremulousness at the onset of symptoms, further indicates that there may be a psychological aspect to his current symptoms. On exam, the patient was noted to have mild tremulousness when checking muscle strength, which was notable in all extremities, however this was noted to be distractible. Plan: 1. Hypertensive urgency: - Likely etiology of left sided numbness, which has now improved since onset - MRI brain: no evidence of acute abnormality - CTA head/neck- no significant stenosis. - Recommend for patient to be referred to psychiatry, which can be done as outpa tient, for possible conversion d/o. - Recommend target BP of normotension, as there is no evidence stroke on MRI brain. - Will sign off, as neurologic investigations are complete and treatment plan is in place. Please call with any questions. - Recommend for patient to follow up with neurology in 4 weeks as outpatient. Thank you for allowing me to take part in the care of this patient. Oj Mayberry MD Neurology Subjective Date of service: 07/20/19 Principal diagnosis: Hypertensive urgency Interval history: No acute events overnight. Left sided numbness resolved today. Objective - Exam Narrative Exam: Patient is alert, awake, oriented 4, follows complex commands.. PERRL, EOMI, VFF, no facial weakness noted, tongue midline, b/l intact to LT. No dysarthria or aphasia noted. 5/5 strength in UE, 5/5 in LE. B/l intact to LT. B/l intact to FTN and HTS. 2+ reflexes throughout. - Vital Sign Vital Signs - 12hr 07/20/19 07/20/19 07/20/19 04:15 08:40 10:23 Temperature 99.0 F Pulse Rate 89 84 Respiratory 18 18 Rate Blood Pressure 140/87 156/109 O2 Sat by Pulse 98 Oximetry - General Apperance Constitutional: comfortable - EENT EENT: ATNC, PERRL, mucous membranes moist - Respiratory Respiratory: lungs clear, normal breath sounds - Cardiovascular Cardiovascular: regular rate, normal S1, normal S2 Extremities: no peripheral edema bilat, no clubbing, cyanosis - Gastrointestinal Gastrointestinal: normoactive bowel sounds, soft, non-tender - Integumentary Integumentary: normal - Musculoskeletal Musculoskeletal: no fluid collection, normal range of motion - Psychiatric Psychiatric: mood/affect appropriate - Laboratory Findings CBC and BMP: 07/19/19 09:09 07/19/19 09:09 Abnormal Lab Findings: Abnormal Labs 07/17/19 07/17/19 07/17/19 21:48 21:48 21:48 WBC MCV 99 H MCH 34 H RDW [place] % (Auto) Lymph # 0.8 L Seg Neutrophils % 77.7 H Carbon Dioxide BUN Glucose 103 H AST 41 H Total Creatine Kinase 216 H Total Protein 8.4 H Salicylates < 0.3 L Acetaminophen 07/17/19 07/18/19 07/19/19 21:48 04:43 09:09 WBC 4.2 L MCV 99 H 100 H MCH 34 H 34 H RDW 12.9 L 13.1 L [place] % (Auto) 9.6 H Lymph # 1.0 L Seg Neutrophils % 74.9 H Carbon Dioxide BUN Glucose AST Total Creatine Kinase Total Protein Salicylates Acetaminophen < 5.0 L 07/19/19 09:09 WBC MCV MCH RDW [place] % (Auto) Lymph # Seg Neutrophils % Carbon Dioxide 18 L BUN 7 L Glucose AST Total Creatine Kinase Total Protein Salicylates Acetaminophen
--- NOTE | 2019-07-20 12:16 | Discharge Summary ---
Providers - Providers Date of Admission: 07/18/19 06:43 Date of discharge: 07/20/19 Attending physician: MORENA DUARTE 07/19/19 09:04 Consult to Physician [CONS] Routine Comment: Consulting Provider: ZANE LYNN Physician Instructions: Reason For Exam: left sided numbness Primary care physician: SERVICE CORRESPONDENT Hospitalization Condition: Fair Hospital course: Patient is 33-year-old -[place] male with no significant past medical history presenting to the emergency room complaining of chest pain and left- sided numbness after waking up from sleep. He also indicates that he has had some heartburn and some nausea but denies any vomiting. He has known history of alcohol abuse and last alcohol intake was 2 days prior to presentation. he was seen and evaluated in Emergency Department. BP was 160/120. he was given Hydralazine iv. CT head was unremarkabble. He was admitted, evaluated by Neurology. Stress test was negative. MRI was unremarkable. Left sided numbness, improved and is believed to be due to hypertensive urgency as per Neurology. He was then discharged home. Total time spent on discharge, 33 mins Disposition: DC-01 TO HOME OR SELFCARE - Discharge Diagnoses (1) Hypertensive urgency Status: Acute (2) Chest pain Status: Acute Comment: due to GERD (3) Chest pain Status: Acute (4) Left sided numbness Status: Acute Comment: due to hypertensive urgency Core Measure Documentation - Palliative Care Palliative Care/ Comfort Measures: Not Applicable - Core Measures Any of the following diagnoses?: none Exam - Constitutional Vitals: Temp Pulse Resp BP Pulse Ox 99.0 F 84 18 156/109 98 07/20/19 04:15 07/20/19 10:23 07/20/19 08:40 07/20/19 10:23 07/20/19 04:15 Plan Activity: no restrictions Diet: low fat, low cholesterol, low salt Plan of Treatment: 1.Follow up with PCP in 1 week 2.Follow up with Neurologist in 4 weeks 3.Follow up with [facility] in 1 week. Follow up with: PRIMARY CARE, [Primary Care Provider] - 3-5 Days Forms: AMA Form, Work/School Release Form Prescriptions: amLODIPine 10 mg PO DAILY #30 tab Folic Acid 1 mg PO DAILY #30 tablet Multivitamin Tab [Multiple Vitamin TAB (Theragran)] 1 each PO QDAY #30 tablet Thiamine [Vitamin B-1] 100 mg PO QDAY #30 tablet
[2019-07-20] MEDS ORDERED: amLODIPine 5 MG TAB PO ONE (13:00)
[2019-07-20 14:37] VITALS: BP 146/94
== END 2019-07-20 16:30 | disposition home or self-care (01) ==
LOC: ED 20:42 → INTOOBSV 07-18 06:43 → 4A 07-18 06:43
PROVIDERS: ADMIT Internal Medicine Geriatric Medicine; ATTEND Internal Medicine
DX: R07.89 Other chest pain (principal); F10.239 Alcohol dependence with withdrawal, unspecified; R41.0 Disorientation, unspecified; R20.2 Paresthesia of skin; F17.210 Nicotine dependence, cigarettes, uncomplicated; Z71.6 Tobacco abuse counseling; Z79.899 Other long term (current) drug therapy; Z79.82 Long term (current) use of aspirin; Z88.2 Allergy status to sulfonamides; Z88.6 Allergy status to analgesic agent; Z88.8 Allergy status to other drugs, medicaments and biological substances
CPT/HCPCS: 36415; 70450; 70496; 70498; 70551; 71045; 78452; 80048; 80053; 80307; 81001; 82550; 82962; 83690; 84484; 85025; 85610; 85730; 93005; 93010; 93017; 93306; 96361; 96365; 96366; 96367; 96372; 96375; 96376; 99284; 99406; A9502; G0378; J0360; J1644; J2060; J2785; J3411; J3475; J7030; Q9967; 80320; G0480